=== PATIENT | male | born 1960 | race Caucasian/White ===

== ENCOUNTER 2020-10-10 10:04 | Emergency (ER) | payer SELFPAY ==
[~2020-10-10] VITALS: Ht 172 cm; Wt 68.9 kg
[~2020-10-10 10:04] MED LIST: ALBU17AE3 IH; CYCL10TA9 PO; NAPR-243 PO; TRM50T PO
[2020-10-10] MEDS ORDERED: RX-ALBUTEROL INHALER (VENTOLIN HFA) 18 GM IH STA (10:58)
[2020-10-10] MEDS ORDERED: LIDOCAINE 1% INJ 20 ML 20 ML VIAL INJ ONE (11:00)
[2020-10-10] MEDS ORDERED: TETANUS,DIPTH,PERTUSS P/F (BOOSTRIX) 0.5 ML VIAL IM ONE (11:00)
--- NOTE | 2020-10-10 11:29 | ED Upper Extremity ---
General Chief Complaint: Foreign Body Stated Complaint: R HAND INDEX FINGER FISH HOOK Nursing Triage Note: PT PRESENTS TO ED WITH COMPLAINTS OF FISH HOOK STUCK IN R INDEX FINGER. (BRYAN TAPIA APRN) Source: patient Exam Limitations: no limitations (CAROLINA WESLEY MD) History of Present Illness Date Seen by Provider: Oct 10, 2020 Time Seen by Provider: 10:50 Initial Comments Here with report of fishhook in the right index finger. He was apparently fishing for catfish and had 2 on the line. They got tangled up and he was trying to untangle them. The larger of the 2 apparently flipped and the hook became lodged in the patient's index finger. He was finally able to get the fish off and cut the line. He initially presented to [facility] urgent [facility] and they sent him here because they did not have x-ray capability this morning. Tetanus is not up-to-date. He is also complaining of some COPD exacerbation but states he really just needs an inhaler. Denies any other recent illness. Complains of fairly significant pain to the right index finger where the hook is at the DIP joint on the dorsum of the hand. Onset: just prior to arrival (1 to 2 hours ago) Severity: moderate Pain/Injury Location: right 2nd finger Method of Injury: other ([place] injury) Modifying Factors: Improves With Immobilization; Worse With Movement (CAROLINA WESLEY MD) Allergies and Home Medications Allergies Coded Allergies: No Known Drug Allergies (Unverified , 02/12/12) Home Medications Albuterol 17 Gm Inh, 1-2 PUFF IH UD, (Reported) Cyclobenzaprine Hcl 10 Mg Tablet, 1 EACH PO Q8HR Prescribed by: HERACLIO OLIVIA on 11/05/131748 Naproxen 500 Mg Tablet, 1 EACH PO TID PRN for PAIN FOR PAIN Prescribed by: HERACLIO OLIVIA on 11/05/131748 Patient Home Medication List Home Medication List Reviewed: Yes (CAROLINA WESLEY MD) Review of Systems Constitutional: No chills, No fever Respiratory: No cough; wheezing Cardiovascular: no symptoms reported Musculoskeletal: joint pain Skin: see HPI; No other (CAROLINA WESLEY MD) Past Pcregsu-Cpontn-Ubwdeb Hx Patient Social History Tobacco Use?: Yes Tobacco type used: Cigarettes Smoking Status: Current Everyday Smoker Smokeless Tobacco Frequency: Never a User Use of E-Cig and/or Vaping dev: No Use of E-Cig and/or Vaping Min: Never a User Substance use?: Yes Substance type: Marijuana Alcohol Use?: Yes Alcohol Frequency: Once in a while Pt feels they are or have been: No (BRYAN TAPIA APRN) Tobacco Use?: Yes Tobacco type used: Cigarettes (CAROLINA WESLEY MD) Immunizations Up To Date Tetanus Booster (TDap): Unknown (BRYAN TAPIA APRN) Past Medical History Asthma Reproductive Disorders: No Sexually Transmitted Disease: No HIV/AIDS: No (BRYAN TAPIA APRN) Surgeries: No Respiratory: Yes COPD (CAROLINA WESLEY MD) Physical Exam Vital Signs Vital Signs - First Documented 10/10/20 10:14 Temp 36.5 Pulse 90 Resp 18 B/P (MAP) 141/97 (112) Pulse Ox 98 (CAROLINA WESLEY MD) Vital Signs Capillary Refill : Less Than 3 Seconds (BRYAN TAPIA APRN) Height, Weight, BMI Height: 5'8" Weight: 150lbs. oz. 68.395943sh; 23.00 BMI Method:Stated (BRYAN TAPIA APRN) General Appearance: WD/WN, no apparent distress Cardiovascular: regular rate, rhythm, no murmur Respiratory: no accessory muscle use, wheezing, expiration Hand: Right, soft tissue tenderness ([place] noted to the area of the dorsum of the DIP joint to the index finger on the right. Unsure if this invades the bone. Does have significant pain in the area. Distal sensation intact and does have retained range of motion but limited and it is very painful.) Neurologic/Tendon: normal sensation, normal motor functions Neurologic/Psychiatric: alert, oriented x 3 Skin: normal color, warm/dry, other ([place] to the right index finger as discussed above) (CAROLINA WESLEY MD) Progress/Results/Core Measures Results/Orders My Orders Orders - CAROLINA WESLEY MD Lidocaine 1% Inj 20 Ml (Xylocaine 1% Inj (10/10/20 11:00) Finger(S) (10/10/20 10:58) Rx-Albuterol Inhaler (Rx-Ventolin Hfa) (10/10/20 10:58) Dipht,Pertuss(Acell),Tet Adult (Boostrix (10/10/20 11:00) (CAROLINA WESLEY MD) Medications Given in ED Current Medications Medications Dose Ordered Sig/Chelsea Route Start Time Stop Time Status Last Admin Dose Admin Diphtheria/ Tetanus/Acell Pertussis 0.5 ml ONCE ONCE IM 10/10/20 11:00 10/10/20 11:01 DC 10/10/20 11:15 0.5 ML Lidocaine HCl 20 ml ONCE ONCE INJ 10/10/20 11:00 10/10/20 11:01 DC 10/10/20 11:16 5 ML (CAROLINA WESLEY MD) Vital Signs/I&O 10/10/20 10:14 Temp 36.5 Pulse 90 Resp 18 B/P (MAP) 141/97 (112) Pulse Ox 98 (CAROLINA WESLEY MD) Blood Pressure Mean: 112 Progress Progress Note : Progress Note Seen and evaluated. X-ray right index finger. Tetanus updated. We will do digital block. Albuterol inhaler given and 2 puffs instilled which did help. Care will be assumed by Bryan Tapia APRN for fishhook removal. (CAROLINA WESLEY MD) Departure Communication (Admissions) 1139-digital block was done using 5 mL of 1% lidocaine without epinephrine. The single hook was advanced through the nail plate proximally, the chari was cut off and the hook was retracted out the back. (BRYAN TAPIA APRN) Impression Primary Impression: Foreign body in soft tissue Disposition: HOME, SELF-CARE Condition: Stable Departure-Patient Inst. Decision time for Depature: 11:41 (BRYAN TAPIA APRN) Referrals: NO,LOCAL PHYSICIAN (PCP/Family) Primary Care Physician Patient Instructions: Foreign Body in Skin (DC) Add. Discharge Instructions: 1. Take the antibiotics as directed return to ER for any concerns follow-up with your doctor next week. All discharge instructions reviewed with patient and/or family. Voiced understanding. Scripts Hydrocodone/Acetaminophen (Hydrocodone-Acetamin 5-325 mg) 1 Each Tablet 1 TAB PO Q4H PRN for PAIN-MODERATE (5-7), #10 TAB Prov: BRYAN TAPIA APRN 10/10/20 Amoxicillin/Potassium Clav (Augmentin 245125 Tablet) 1 Each Tablet 1 EACH PO BID, #14 TAB 0 Refills Prov: BRYAN TAPIA APRN 10/10/20 BRYAN TAPIA APRN Oct 10, 2020 11:29 CAROLINA WESLEY MD Oct 10, 2020 11:37
--- NOTE | 2020-10-10 11:32 | Diagnostic Imaging Report ---
Right fingers at 11:06. Indication: Finger pain A single AP view of the hand and AP and lateral views of the 2nd digit were obtained. There are no prior studies available for comparison. There is a metallic fishhook embedded in the region of the nail of the distal phalanx of the 2nd digit. There is no direct bony involvement identified. No other fracture or acute bony abnormality seen. Impression: 1. There is a metallic fishhook embedded in the soft tissues about the nail of the 2nd digit. 2. There is no acute bony abnormality noted. Dictated by: Dictated on workstation # [id number]
[2020-10-10] MEDS ORDERED: AMOX-358 PO (11:41)
[2020-10-10] MEDS ORDERED: ACHD5005 PO (11:41)
[2020-10-10 11:50] VITALS: BP 140/87
== END 2020-10-10 11:50 | disposition home or self-care (01) ==
LOC: EDUNIT# 10:04 → ER 10:05
DX: S60.450A Superficial foreign body of right index finger, initial encounter (principal); J44.9 Chronic obstructive pulmonary disease, unspecified; F17.210 Nicotine dependence, cigarettes, uncomplicated; Z23 Encounter for immunization; W45.8XXA Other foreign body or object entering through skin, initial encounter
CPT/HCPCS: 73140; 90715

== ENCOUNTER 2022-03-12 18:23 | Emergency (ER) | payer SELFPAY ==
[~2022-03-12 18:23] MED LIST changes: +ACHD5005 PO; +AMOX-358 PO
[2022-03-12] MEDS ORDERED: NS IV 1000 ML 1,000 ML IV STA (18:41)
[2022-03-12] MEDS ORDERED: KETOROLAC 30 MG/ML VIAL IVP ONE (18:45)
[2022-03-12] MEDS ORDERED: ACETAMINOPHEN 500 MG TAB (TYLENOL) PO ONE (18:45)
[2022-03-12 18:51] LABS: BASOPHILS % (AUTO) 0 % (0-10); EOSINOPHILS % (AUTO) 0 % (0-10); HEMATOCRIT 45 % (40-54); HEMOGLOBIN 15.7 g/dL (13.3-17.7); LYMPHOCYTES # (AUTO) 0.6 10^3/uL (1.0-4.0); LYMPHOCYTES % (AUTO) 11 % (12-44); MEAN CORPUSCULAR HEMOGLOBIN 31 pg (25-34); MEAN CORPUSCULAR HGB CONC 35 g/dL (32-36); MEAN CORPUSCULAR VOLUME 88 fL (80-99); MEAN PLATELET VOLUME 9.5 fL (9.0-12.2); MONOCYTES # (AUTO) 0.5 10^3/uL (0.0-1.0); MONOCYTES % (AUTO) 10 % (0-12); NEUTROPHILS # (AUTO) 4.1 10^3/uL (1.8-7.8); NEUTROPHILS % (AUTO) 78 % (42-75); PLATELET COUNT 186 10^3/uL (130-400); WHITE BLOOD COUNT 5.3 10^3/uL (4.3-11.0)
--- NOTE | 2022-03-12 18:51 | ED Cough/URI ---
General Chief Complaint: Cough/Cold/Flu Symptoms Stated Complaint: COUGH/DIZZY/LOW BACK PAIN Nursing Triage Note: Pt to ed with c/o cough, headaches, dizziness, lower left back pain for about 1 week Source: patient Exam Limitations: no limitations History of Present Illness Date Seen by Provider: Mar 12, 2022 Time Seen by Provider: 18:31 Initial Comments Here with report of cough, headache, dizziness, back pain, congestion and overall not feeling well for the last week to a week and a half. Seen yesterday at [facility] outpatient clinic and apparently started on antibiotic and a steroid. He is using inhaler. Reports that things are worse today. He did not get tested for flu or COVID. He works as a [employer]. He does smoke. Denies nausea or vomiting but does have some loose stools. Denies dysuria. Does complain of fever and chills. Severity/Quality: moderate, dry cough Prior Episodes/Possible Cause: occasional episodes Modifying Factors: Improves With Albuterol Inhaler Associated Symptoms: cough, dizziness, fever/chills, headache, muscle aches, nasal congestion, shortness of breath Allergies and Home Medications Allergies Coded Allergies: No Known Drug Allergies (Unverified , 02/12/12) Patient Home Medication List Home Medication List Reviewed: Yes Albuterol (Proventil) 17 Gm Inh, 1-2 PUFF IH UD, (Reported) Entered as Reported by: CONSTANTINO STALEY on 11/05/13 1605 Amoxicillin/Potassium Clav (Augmentin 875-125 Tablet) 1 Each Tablet, 1 EACH PO BID Prescribed by: BRYAN TAPIA on 10/10/20 1141 Cyclobenzaprine Hcl (Cyclobenzaprine Hcl) 10 Mg Tablet, 1 EACH PO Q8HR Prescribed by: HERACLIO OLIVIA on 11/05/13 174 Hydrocodone/Acetaminophen (Hydrocodone-Acetamin 5-325 mg) 1 Each Tablet, 1 TAB PO Q4H PRN for PAIN-MODERATE (5-7) Prescribed by: BRYAN TAPIA on 10/10/20 1142 Naproxen (Naprosyn) 500 Mg Tablet, 1 EACH PO TID PRN for PAIN Prescribed by: HERACLIO OLIVIA on 11/05/13 174 Review of Systems Review of Systems Constitutional: see HPI, chills, fever EENTM: nose congestion; No throat pain Respiratory: cough, short of breath Cardiovascular: No chest pain, No edema Gastrointestinal: diarrhea; No nausea, No vomiting Genitourinary: no symptoms reported Musculoskeletal: back pain, muscle pain All Other Systems Reviewed Negative Unless Noted: Yes Past Jduqdvm-Exmhiy-Ppalrp Hx Patient Social History Tobacco Use?: Yes Tobacco type used: Cigarettes Smoking Status: Current Everyday Smoker Substance use?: Yes Substance type: Methamphetamine, Other Additional substance use comme: cocaine Alcohol Use?: Yes Alcohol Frequency: Couple times a week Pt feels they are or have been: No Immunizations Up To Date Tetanus Booster (TDap): Unknown Past Medical History Surgery/Hospitalization HX: copd, htn Surgeries: No Respiratory: Yes COPD Cardiac: Yes Hypertension Reproductive Disorders: No Sexually Transmitted Disease: No HIV/AIDS: No Family Medical History Reviewed Nursing Family Hx Physical Exam Vital Signs - First Documented 03/12/22 18:31 Temp 37.5 Pulse 102 Resp 22 B/P (MAP) 176/107 (130) Pulse Ox 95 O2 Delivery Room Air Capillary Refill : Height: 5'8" Weight: 150lbs. oz. 68.580124ut; 23.00 BMI Method:Stated General Appearance: WD/WN, no apparent distress HEENT: PERRL/EOMI Neck: non-tender, full range of motion, supple, normal inspection Respiratory: lungs clear, normal breath sounds, other (Coarse cough noted) Cardiovascular: no murmur, tachycardia Gastrointestinal: non tender, soft Extremities: non-tender, normal inspection, no pedal edema, no calf tenderness, other (Tender to left lower back lateral aspect) Neurologic/Psychiatric: no motor/sensory deficits, alert Skin: normal color, warm/dry Progress/Results/Core Measures Suspected Sepsis SIRS Temperature: Pulse: 102 Respiratory Rate: 22 Laboratory Tests 03/12/22 18:41: White Blood Count 5.3 Blood Pressure 176 /107 Mean: 130 Laboratory Tests 03/12/22 18:41: Creatinine 0.79, Platelet Count 186, Total Bilirubin 0.3 Results/Orders Lab Results Laboratory Tests Test 03/12/22 18:32 03/12/22 18:41 Range/Units Influenza Type A (RT-PCR) Detected H Not Detecte Influenza Type B (RT-PCR) Not Detected Not Detecte SARS-CoV-2 RNA (RT-PCR) Not Detected Not Detecte White Blood Count 5.3 4.3-11.0 10^3/uL Red Blood Count 5.10 4.30-5.52 10^6/uL Hemoglobin 15.7 13.3-17.7 g/dL Hematocrit 45 40-54 % Mean Corpuscular Volume 88 80-99 fL Mean Corpuscular Hemoglobin 31 25-34 pg Mean Corpuscular Hemoglobin Concent 35 32-36 g/dL Red Cell Distribution Width 12.7 10.0-14.5 % Platelet Count 186 130-400 10^3/uL Mean Platelet Volume 9.5 9.0-12.2 fL Immature Granulocyte % (Auto) 1 % Neutrophils (%) (Auto) 78 H 42-75 % Lymphocytes (%) (Auto) 11 L 12-44 % Monocytes (%) (Auto) 10 0-12 % Eosinophils (%) (Auto) 0 0-10 % Basophils (%) (Auto) 0 0-10 % Neutrophils # (Auto) 4.1 1.8-7.8 10^3/uL Lymphocytes # (Auto) 0.6 L 1.0-4.0 10^3/uL Monocytes # (Auto) 0.5 0.0-1.0 10^3/uL Eosinophils # (Auto) 0.0 0.0-0.3 10^3/uL Basophils # (Auto) 0.0 0.0-0.1 10^3/uL Immature Granulocyte # (Auto) 0.0 0.0-0.1 10^3/uL Sodium Level 133 L 135-145 MMOL/L Potassium Level 3.8 3.6-5.0 MMOL/L Chloride Level 100 98-107 MMOL/L Carbon Dioxide Level 22 21-32 MMOL/L Anion Gap 11 5-14 MMOL/L Blood Urea Nitrogen 17 7-18 MG/DL Creatinine 0.79 0.60-1.30 MG/DL Estimat Glomerular Filtration Rate 102 BUN/Creatinine Ratio 22 Glucose Level 102 70-105 MG/DL Calcium Level 8.5 8.5-10.1 MG/DL Corrected Calcium 8.9 8.5-10.1 MG/DL Total Bilirubin 0.3 0.1-1.0 MG/DL Aspartate Amino Transf (AST/SGOT) 56 H 5-34 U/L Alanine Aminotransferase (ALT/SGPT) 90 H 0-55 U/L Alkaline Phosphatase 102 40-136 U/L C-Reactive Protein High Sensitivity 1.19 H 0.00-0.50 MG/DL Total Protein 6.7 6.4-8.2 GM/DL Albumin 3.5 3.2-4.5 GM/DL My Orders Orders - CAROLINA WESLEY MD Covid 19 Inhouse Test (03/12/22 18:41) Influenza A And B By Pcr (03/12/22 18:41) Cbc With Automated Diff (03/12/22 18:41) Comprehensive Metabolic Panel (03/12/22 18:41) Hs C Reactive Protein (03/12/22 18:41) Ns Iv 1000 Ml (Sodium Chloride 0.9%) (03/12/22 18:41) Ed Iv/Invasive Line Start (03/12/22 18:41) Chest 1 View, Ap/Pa Only (03/12/22 18:41) Acetaminophen Tablet (Tylenol Tablet) (03/12/22 18:45) Ketorolac Injection (Toradol Injection) (03/12/22 18:45) Medications Given in ED Current Medications Medications Dose Ordered Sig/Chelsea Route Start Time Stop Time Status Last Admin Dose Admin Acetaminophen 1,000 mg ONCE ONCE PO 12 18:45 12 18:46 DC 03/12/22 18:51 1,000 MG Ketorolac Tromethamine 30 mg ONCE ONCE IVP 03/12/22 18:45 12 18:46 DC 03/12/22 18:51 30 MG Vital Signs/I&O 03/12/22 18:31 Temp 37.5 Pulse 102 Resp 22 B/P (MAP) 176/107 (130) Pulse Ox 95 O2 Delivery Room Air Capillary Refill : Blood Pressure Mean: 130 Progress Note : Progress Note Seen and evaluated. IV, CBC, CMP and CRP, chest x-ray, normal saline 1 L bolus, influenza and COVID testing ordered. Acetaminophen 1000 mg p.o. and ketorolac 30 mg IV ordered for fever and pain. Concern for viral illness due to presenting complaints and fever but pneumonia is also a concern. Monitor patient. 1922: Chest x-ray shows no obvious pneumonia on my interpretation. Pending final result. Patient is positive for influenza A. White count normal and chemistries are overall and normal or reasonable range. CRP is only slightly elevated. I do believe all this is related to influenza A. Patient states he is actually feeling better now after meds and with fluids. We will complete fluids and then patient to be discharged home. I did discuss with him regarding return precautions and home therapy. Discharged home with return precautions. Patient verbalized understanding of instructions and agreement with plan. Diagnostic Imaging Diagonstic Imaging: Xray Plain Films/CT/US/NM/MRI: chest Comments No obvious infiltrate pending final radiology report [facility], [place] NAME: VIOLETA SALGUERO [facility] REC#: [id number] PT STATUS: REG ER : 1960 PHYSICIAN: CAROLINA WESLEY MD ADMIT DATE: 03/12/22/ER Signed Date of Exam:03/12/22 CHEST 1 VIEW, AP/PA ONLY INDICATION: Cough. COMPARISON: No prior examination is available for comparison. FINDINGS: The heart size, mediastinal configuration, and pulmonary vascularity are within normal limits. There is no pleural effusion, pneumothorax, or pneumonia. The osseous structures are unremarkable. IMPRESSION: No acute cardiopulmonary abnormality. Dictated by: Dictated on workstation # [id number] Dict: 03/12/221918 Trans: 03/12/221922 [facility] [id number] Interpreted by: STEFANO YOO MD Electronically signed by: STEFANO YOO MD 03/12/221922 Departure Impression Primary Impression: Influenza A Disposition: 01 HOME, SELF-CARE Condition: Stable Departure-Patient Inst. Decision time for Depature: 19:24 Referrals: [facility] (PCP/Family) Primary Care Physician Patient Instructions: Flu, Adult (DC) Add. Discharge Instructions: All discharge instructions reviewed with patient and/or family. Voiced understanding. You may take Tylenol/acetaminophen 1000 mg every 8 hours as needed for fever or pain. You may take ibuprofen 600 mg every 8 hours as needed for fever or pain. Continue other medications as previously prescribed and you may continue inhaler as needed. Follow-up with your DrFrancisco in a few days for recheck. Drink plenty of fluids and get plenty of rest. You would benefit from taking a few days off from work to recover. You should not be out in public with influenza A until your fever has resolved for at least 24 hours without fever reducing medicines. Return for worse pain, fever, vomiting, weakness, breathing problems or other concerns as needed. CAROLINA WESLEY MD Mar 12, 2022 18:51
[2022-03-12 19:09] LABS: ALBUMIN 3.5 GM/DL (3.2-4.5); BILIRUBIN,TOTAL 0.3 MG/DL (0.1-1.0); CALCIUM 8.5 MG/DL (8.5-10.1); CREATININE SERUM 0.79 MG/DL (0.60-1.30); POTASSIUM 3.8 MMOL/L (3.6-5.0); TOTAL PROTEIN 6.7 GM/DL (6.4-8.2)
--- NOTE | 2022-03-12 19:22 | Diagnostic Imaging Report ---
INDICATION: Cough. COMPARISON: No prior examination is available for comparison. FINDINGS: The heart size, mediastinal configuration, and pulmonary vascularity are within normal limits. There is no pleural effusion, pneumothorax, or pneumonia. The osseous structures are unremarkable. IMPRESSION: No acute cardiopulmonary abnormality. Dictated by: Dictated on workstation # [id number]
[2022-03-12 19:54] VITALS: BP 176/107
== END 2022-03-12 19:53 | disposition home or self-care (01) ==
LOC: EDUNIT# 18:23 → ER 18:26
DX: J10.1 Influenza due to other identified influenza virus with other respiratory manifestations (principal); F17.210 Nicotine dependence, cigarettes, uncomplicated; Z20.822 Contact with and (suspected) exposure to COVID-19; Z28.310 Unvaccinated for COVID-19
CPT/HCPCS: 36415; 71045; 80053; 85025; 86141; 87636

== ENCOUNTER 2022-04-22 18:44 | Emergency (ER) | payer SELFPAY ==
[~2022-04-22] VITALS: Ht 172.7 cm; Wt 70.3 kg
[2022-04-22 18:56] LABS: BASOPHILS # (AUTO) 0.1 10^3/uL (0.0-0.1); BASOPHILS % (AUTO) 1 % (0-10); EOSINOPHILS # (AUTO) 0.5 10^3/uL (0.0-0.3); EOSINOPHILS % (AUTO) 5 % (0-10); HEMATOCRIT 52 % (40-54); LYMPHOCYTES # (AUTO) 2.4 10^3/uL (1.0-4.0); LYMPHOCYTES % (AUTO) 27 % (12-44); MEAN CORPUSCULAR HEMOGLOBIN 31 pg (25-34); MEAN CORPUSCULAR HGB CONC 34 g/dL (32-36); MEAN CORPUSCULAR VOLUME 89 fL (80-99); MEAN PLATELET VOLUME 9.2 fL (9.0-12.2); MONOCYTES # (AUTO) 0.7 10^3/uL (0.0-1.0); MONOCYTES % (AUTO) 7 % (0-12); NEUTROPHILS # (AUTO) 5.3 10^3/uL (1.8-7.8); NEUTROPHILS % (AUTO) 60 % (42-75); PLATELET COUNT 355 10^3/uL (130-400); WHITE BLOOD COUNT 8.9 10^3/uL (4.3-11.0)
--- NOTE | 2022-04-22 19:05 | ED Neurological Problem ---
General Chief Complaint: Neurological Problems Stated Complaint: POSS STROKE Nursing Triage Note: PT AMBULATE TO ROOM 05 WITH C/O NUMBNESS ON LEFT SIDE, DOUBLE VISION, AND GENERAL WEAKNESS STARTING X20MIN BI MANAGER. PT REPORTS CHEST PAIN. Source: patient History of Present Illness Date Seen by Provider: Apr 22, 2022 Time Seen by Provider: 18:46 Initial Comments PT ARRIVES VIA POV FROM HOME STATES 20 MINUTES AGO, HE BEGAN TO HAVE NUMBNESS AND TINGLING TO THE LEFT SIDE OF HIS BODY, INCLUDING THE LEFT SIDE OF HIS FACE. STATES "IT'S HAPPENED 3 TIMES ALREADY" AND SYMPTOMS ARE IMPROVING SHORTLY AFTER ARRIVAL--STATES HE JUST FEELS A LITTLE TINGLY ON THE LEFT SIDE OF HIS BODY, NOT NUMB LIKE HE WAS STATES HIS "EQUILIBRIUM IS OFF" STATES HE HAS SOME DOUBLE VISION STATES HIS CHEST "MIGHT FEEL A LITTLE TIGHT" NO SHORTNESS OF BREATH NO HEADACHE NO NAUSEA / VOMITING FEELS WEAK ALL OVER NO HISTORY OF SIMILAR STATES HE USES AN INHALER FOR COPD STATES HE HAS HTN, BUT DOES NOT TAKE ANY MEDICATION FOR IT. PT DID TEST POSITIVE FOR INFLUENZA 03/12/22. PT IS NOT COVID OR FLU VACCINATED. PCP: JABARI-SAMANTA Allergies and Home Medications Allergies Coded Allergies: No Known Drug Allergies (Unverified , 02/12/12) Patient Home Medication List Albuterol (Proventil) 17 Gm Inh, 1-2 PUFF IH UD, (Reported) Entered as Reported by: CONSTANTINO STALEY on 11/05/13 1605 Amoxicillin/Potassium Clav (Augmentin 875-125 Tablet) 1 Each Tablet, 1 EACH PO BID Prescribed by: BRYAN TAPIA on 10/10/20 1141 Cyclobenzaprine Hcl (Cyclobenzaprine Hcl) 10 Mg Tablet, 1 EACH PO Q8HR Prescribed by: HERACLIO OLIVIA on 11/05/13 1749 Hydrocodone/Acetaminophen (Hydrocodone-Acetamin 5-325 mg) 1 Each Tablet, 1 TAB PO Q4H PRN for PAIN-MODERATE (5-7) Prescribed by: BRYAN TAPIA on 10/10/20 1142 Naproxen (Naprosyn) 500 Mg Tablet, 1 EACH PO TID PRN for PAIN Prescribed by: HERACLIO OLIVIA on 11/05/13 1749 Review of Systems Review of Systems Constitutional: see HPI; No chills, No diaphoresis; dizziness; No fever; weakness Eyes: See HPI, Vision Changes Ears, Nose, Mouth, Throat: no symptoms reported Respiratory: no symptoms reported Cardiovascular: see HPI, chest pain Gastrointestinal: no symptoms reported Genitourinary: no symptoms reported Musculoskeletal: no symptoms reported Skin: no symptoms reported Psychiatric/Neurological: See HPI; Denies Headache; Numbness, Tingling Endocrine: No Symptoms Reported Hematologic/Lymphatic: No Symptoms Reported Past Axeqpph-Ezlqht-Sqhgor Hx Patient Social History Tobacco Use?: Yes Tobacco type used: Cigarettes Smoking Status: Heavy Tobacco Smoker Smokeless Tobacco Frequency: Never a User Use of E-Cig and/or Vaping dev: No Use of E-Cig and/or Vaping Min: Never a User Substance use?: Yes Substance type: Amphetamines, Methamphetamine, Opiates/Opioids, Misuse of prescript meds, Marijuana Alcohol Use?: Yes Alcohol Frequency: Daily Pt feels they are or have been: No Immunizations Up To Date Tetanus Booster (TDap): Unknown Past Medical History Surgery/Hospitalization HX: copd, htn Surgeries: Yes Appendectomy Respiratory: Yes COPD Cardiac: Yes Hypertension Reproductive Disorders: No Sexually Transmitted Disease: No HIV/AIDS: No Genitourinary: No Gastrointestinal: No Musculoskeletal: No Endocrine: No HEENT: No Cancer: No Psychosocial: No Integumentary: No Blood Disorders: No Family Medical History SOCIAL HISTORY: -SMOKES 1 PPD -ETOH--"OCCASIONAL" USE -DRUGS--DENIES USE, BUT UDS + FOR AMPHETAMINES/METHAMPHETAMINES, THC, BENZODIAZEPINES ON 04/22/22 Physical Exam Vital Signs Vital Signs - First Documented 04/22/22 18:48 Temp 36.3 Pulse 82 Resp 14 B/P (MAP) 172/99 (123) O2 Delivery Room Air Capillary Refill : Less Than 3 Seconds Height, Weight, BMI Height: 5'8" Weight: 150lbs. oz. 68.608700jw; 23.00 BMI Method:Stated General Appearance: WD/WN, no apparent distress, other (REEKS OF CIGARETTES. ) HEENT: PERRL/EOMI, TMs normal, pharynx normal, other (POOR DENTITION. NO FACIAL DROOP. TONGUE IS MIDLINE. 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 ) Crainal Nerves: normal hearing, normal speech, PERRL Coordination/Gait: normal finger to nose, normal gait Motor/Sensory: no motor deficit, no sensory deficit, no pronator drift Skin: normal color, warm/dry, tattoos/piercings Stroke Onset of Symptoms Date of Onset of Symptoms: Apr 22, 2022 Time of Symptom Onset: 18:20 Onset of Symptoms: Yes NIH Stroke Scale Assessment Level of Consciousness: 0=Alert (0), Level of Consciousness-Questions: 0=Answers both month/age (0), LOC Commands: 0=Performs both tasks (0), Visual Jordan: 0=No visual loss (0), Facial Movement (Facial Paresis): 0=Normal symm etrical mnt (0), Motor Function-Arms Right: 0=No drift (0), Motor Function- Arms Left: 0=No drift (0), Motor Function-Legs Right: 0=No drift (0), Motor Function-Legs Left: 0=No drift (0), Limb Ataxia: 0=Absent (0), Sensory: 0=Normal:no loss (0), Best Language: 0=No aphasia (0), Dysarthria: 0=Normal (0), Extinction & Inattention: 0=No abnormality (0), Total: 0 Stroke Thrombolytic Exclusion Age 18 or Over: Yes History of CVA: No Uncontrolled Coagulation Defec: No Intracranial Hemorrhage: No Severe Hypertension: No GI or Bleed: No Subarachnoid Hemorrhage: No Intracranial Neoplasm/Aneurysm: No Oral Anticoagulants: No Surgery or Trauma: No Puncture of Non-Compressible V: No Recent CPR: No Diabetic Hemorrhagic Retinopat: No Organ Biopsy: No Recent Obstetric Delivery: No Glucose: No NIH Stoke Scale >22: No Bacterial Endocarditis: No Pericarditis: No Improving Symptoms: Yes Platelets: No TPA Contraindication: No IV - TPa Received IV - TPa Procedure Performed?: No (NIH IS 0, AND SYMPTOMS IMPROVING. ) Progress/Results/Core Measures Results/Orders Lab Results Laboratory Tests Test 04/22/22 18:44 04/22/22 18:50 04/22/22 18:52 04/22/22 19:18 Range/Units White Blood Count 8.9 4.3-11.0 10^3/uL Red Blood Count 5.87 H 4.30-5.52 10^6/uL Hemoglobin 18.0 H 13.3-17.7 g/dL Hematocrit 52 40-54 % Mean Corpuscular Volume 89 80-99 fL Mean Corpuscular Hemoglobin 31 25-34 pg Mean Corpuscular Hemoglobin Concent 34 32-36 g/dL Red Cell Distribution Width 13.0 10.0-14.5 % Platelet Count 355 130-400 10^3/uL Mean Platelet Volume 9.2 9.0-12.2 fL Immature Granulocyte % (Auto) 0 % Neutrophils (%) (Auto) 60 42-75 % Lymphocytes (%) (Auto) 27 12-44 % Monocytes (%) (Auto) 7 0-12 % Eosinophils (%) (Auto) 5 0-10 % Basophils (%) (Auto) 1 0-10 % Neutrophils # (Auto) 5.3 1.8-7.8 10^3/uL Lymphocytes # (Auto) 2.4 1.0-4.0 10^3/uL Monocytes # (Auto) 0.7 0.0-1.0 10^3/uL Eosinophils # (Auto) 0.5 H 0.0-0.3 10^3/uL Basophils # (Auto) 0.1 0.0-0.1 10^3/uL Immature Granulocyte # (Auto) 0.0 0.0-0.1 10^3/uL Erythrocyte Sedimentation Rate 3 0-30 MM/HR Sodium Level 137 135-145 MMOL/L Potassium Level 3.9 3.6-5.0 MMOL/L Chloride Level 100 98-107 MMOL/L Carbon Dioxide Level 27 21-32 MMOL/L Anion Gap 10 5-14 MMOL/L Blood Urea Nitrogen 19 H 7-18 MG/DL Creatinine 1.01 0.60-1.30 MG/DL Estimat Glomerular Filtration Rate 85 BUN/Creatinine Ratio 19 Glucose Level 90 70-105 MG/DL Calcium Level 9.5 8.5-10.1 MG/DL Corrected Calcium 9.4 8.5-10.1 MG/DL Magnesium Level 2.0 1.6-2.4 MG/DL Total Bilirubin 0.9 0.1-1.0 MG/DL Aspartate Amino Transf (AST/SGOT) 45 H 5-34 U/L Alanine Aminotransferase (ALT/SGPT) 105 H 0-55 U/L Alkaline Phosphatase 118 40-136 U/L Total Creatine Kinase 90 30-200 U/L Creatine Kinase MB 3.0 <6.6 NG/ML Myoglobin 74.0 10.0-92.0 NG/ML Troponin I < 0.028 <0.028 NG/ML C-Reactive Protein High Sensitivity 0.48 0.00-0.50 MG/DL B-Type Natriuretic Peptide 41.0 <100.0 PG/ML Total Protein 8.1 6.4-8.2 GM/DL Albumin 4.1 3.2-4.5 GM/DL TSH [place] Testing 1.12 0.35-4.94 UIU/ML Acetaminophen Level < 10 L 10-30 UG/ML Serum Alcohol < 10 <10 MG/DL Influenza Type A (RT-PCR) Not Detected Not Detecte Influenza Type B (RT-PCR) Not Detected Not Detecte SARS-CoV-2 RNA (RT-PCR) Not Detected Not Detecte Glucometer 91 70-110 MG/DL Prothrombin Time 13.7 12.2-14.7 SEC INR Comment 1.0 0.8-1.4 Activated Partial Thromboplast Time 30 24-35 SEC D-Dimer 0.58 H 0.00-0.49 UG/ML Test 04/22/22 20:03 Range/Units Urine Color YELLOW Urine Clarity CLEAR Urine pH 6.0 5-9 Urine Specific [place] 1.010 L 1.016-1.022 Urine Protein NEGATIVE NEGATIVE Urine Glucose (UA) NEGATIVE NEGATIVE Urine Ketones NEGATIVE NEGATIVE Urine Nitrite NEGATIVE NEGATIVE Urine Bilirubin NEGATIVE NEGATIVE Urine Urobilinogen 0.2 < = 1.0 MG/DL Urine Leukocyte Esterase NEGATIVE NEGATIVE Urine RBC (Auto) NEGATIVE NEGATIVE Urine RBC NONE /HPF Urine WBC NONE /HPF Urine Crystals NONE /LPF Urine Bacteria NEGATIVE /HPF Urine Casts NONE /LPF Urine Mucus SMALL H /LPF Urine Other FEW SPERM H /HPF Urine Culture Indicated NO Urine Opiates Screen NEGATIVE NEGATIVE Urine Oxycodone Screen NEGATIVE NEGATIVE Urine Methadone Screen NEGATIVE NEGATIVE Urine Propoxyphene Screen NEGATIVE NEGATIVE Urine Barbiturates Screen NEGATIVE NEGATIVE Ur Tricyclic Antidepressants Screen NEGATIVE NEGATIVE Urine Phencyclidine Screen NEGATIVE NEGATIVE Urine Amphetamines Screen POSITIVE H NEGATIVE Urine Methamphetamines Screen POSITIVE H NEGATIVE Urine Benzodiazepines Screen POSITIVE H NEGATIVE Urine Cocaine Screen NEGATIVE NEGATIVE Urine Cannabinoids Screen POSITIVE H NEGATIVE My Orders Orders - HERACLIO OLIVIA DO Cbc With Automated Diff (04/22/22 18:50) Protime With Inr (04/22/22 18:50) Partial Thromboplastin Time (04/22/22 18:50) Comprehensive Metabolic Panel (04/22/22 18:50) Fibrin Degradation Products (04/22/22 18:50) Troponin I Cheri (04/22/22 18:50) Ua Culture If Indicated (04/22/22 18:50) Chest 1 View, Ap/Pa Only (04/22/22 18:50) Ekg Tracing (04/22/22 18:50) Nothing By Mouth (04/22/22 Dinner) Accucheck Stat ONCE (04/22/22 18:50) Ed Iv/Invasive Line Start (04/22/22 18:50) Ed Iv/Invasive Line Start (04/22/22 18:50) Vital Signs Stroke Patient Q15M (04/22/22 18:50) Ct Head Wo-R/O Stroke (04/22/22 18:50) O2 (04/22/22 18:50) Intake & Output 06,14,22 (04/22/22 18:50) Monitor-Rhythm Ecg Trace Only (04/22/22 18:50) Dysphagia Screening Tool Q10MX1 (04/22/22 18:50) Hs C Reactive Protein (04/22/22 18:50) Erythrocyte Sedimentation Rate (04/22/22 18:50) Covid 19 Inhouse Test (04/22/22 18:50) Acetaminophen (04/22/22 18:50) Alcohol (04/22/22 18:50) Bnp Cheri (04/22/22 18:50) Creatine Kinase (04/22/22 18:50) Creatine Kinase Mb (04/22/22 18:50) Drug Screen Stat (Urine) (04/22/22 18:50) Magnesium (04/22/22 18:50) Thyroid Analyzer (04/22/22 18:50) Myoglobin Serum (04/22/22 18:50) Influenza A And B By Pcr (04/22/22 18:50) Isolation Central Supply Req (04/22/22 18:50) Ct Angio Head/Neck (04/22/22 19:18) Ct Head Perfusion W/ Contrast (04/22/22 19:18) Labetalol Injection (Normodyne Injection (04/22/22 19:30) Iohexol Injection (Omnipaque 350 Mg/Ml 1 (04/22/22 19:30) Ns (Ivpb) (Sodium Chloride 0.9% Ivpb Bag (04/22/22 19:30) Iohexol Injection (Omnipaque 350 Mg/Ml 1 (04/22/22 19:30) Ns (Ivpb) (Sodium Chloride 0.9% Ivpb Bag (04/22/22 19:30) Sodium Chloride Flush (Catheter Flush Sy (04/22/22 19:30) Medications Given in ED Current Medications Medications Dose Ordered Sig/Chelsea Route Start Time Stop Time Status Last Admin Dose Admin Iohexol 100 ml ONCE ONCE IV 04/22/22 19:30 04/22/22 19:31 DC 04/22/22 19:38 45 ML Iohexol 100 ml ONCE ONCE IV 04/22/22 19:30 04/22/22 19:31 DC 04/22/22 19:45 75 ML Sodium Chloride 10 ml NEEDED PRN IV 04/22/22 19:30 04/22/22 19:45 10 ML Sodium Chloride 100 ml ONCE ONCE IV 04/22/22 19:30 04/22/22 19:31 DC 04/22/22 19:39 80 ML Sodium Chloride 100 ml ONCE ONCE IV 04/22/22 19:30 04/22/22 19:31 DC 04/22/22 19:45 40 ML Vital Signs/I&O 04/22/22 18:48 Temp 36.3 Pulse 82 Resp 14 B/P (MAP) 172/99 (123) O2 Delivery Room Air Blood Pressure Mean: 123 FSBG Bedside Testing Finger Stick Blood Glucose: 91 Progress Progress Note : Progress Note STROKE PROTOCOL INITIATED ON ARRIVAL. BP 180'S/100'S ON ARRIVAL GIVEN LABETALOL FOR HTN PT WANTING SOMETHING TO DRINK AND WANTING US TO GET HIM A HAMBURGER SOON HE ARRIVES. EXPLAINED TO PT THAT HE COULD NOT HAVE ANYTHING TO EAT OR DRINK, UNTIL WE HAVE DONE TESTS. SYMPTOMS RESOLVED SHORTLY AFTER ARRIVAL UNEVENTFUL ER STAY Initial ECG Impression Date: Apr 22, 2022 Initial ECG Impression Time: 18:50 Initial ECG Rate: 76 Initial ECG Rhythm: Normal Sinus Initial ECG Impression: Nonspecific Changes Initial ECG Comparisson: No Previous ECG Available Comment INTERPRETED BY ME Diagnostic Imaging Comments CT HEAD--NO ACUTE PROCESS, PER RADIOLOGIST VIA PHONE AT 1907 FINDINGS: The ventricles and sulci are normal. Mild hypodensities throughout the supratentorial white matter of both cerebral hemispheres. No acute intracranial hemorrhage or abnormal extra-axial fluid collections are present. Calcification of the intracranial ICAs. No hyperdense vessel. The calvarium is intact. The mastoid air cells are clear. Mucosal thickening of the paranasal sinuses. The orbits are normal. IMPRESSION: 1. No acute intracranial abnormality. 2. Mild chronic microangiopathy. CXR--PER RADIOLOGIST REPORT AT 191 FINDINGS: The lungs slightly hyperinflated with a vague nodularity in the peripheral right mid lung stable, likely a calcified granuloma. There are no infiltrates. No pneumothorax. Heart and pulmonary vasculature normal. IMPRESSION: 1. Chronic findings. No acute cardiopulmonary process. CT ANGIOGRAM HEAD / NECK--PER RADIOLOGIST REPORT AT 2020 FINDINGS: Atherosclerotic disease is noted, bilaterally, at the carotid bulbs extending into the proximal internal and external carotid arteries with atherosclerotic disease in the internal carotid arteries at the clinoid. No significant stenosis is appreciated. No occlusion. Internal carotid arteries appear normal without stenosis aneurysmal dilatation or dissection. Vertebral artery origins are normal. Within the intracranial aspects of the left vertebral artery there is a small protuberance noted on images 381 and 383, possibly a small aneurysmal dilatation. No adjacent hemorrhage is appreciated. There is no significant stenosis or evidence for occlusion. No vertebral artery dissection. Ramos-white matter differentiation is normal. There is no mass mass effect or midline shift. There is no hydrocephalus. No soft tissue abnormality is seen. No osseus lesion or fracture is seen. Limited views of the superior thorax are unremarkable. IMPRESSION: No acute abnormality is appreciated with areas of scattered atherosclerotic disease, as above, without dissection or occlusion. Mild protuberance along the intracranial aspect of the left vertebral artery may be normal for this patient with a small focal aneurysm not excluded. CT HEAD PERFUSION--PER DR. DICKENS, RADIOLOGIST, VIA PHONE AT [phone] -NO LARGE VESSEL OCCLUSION. Reviewed: Reviewed by Me, Discussed w/Radiologist Departure Impression Primary Impression: TRANSIENT PARESTHESIAS Additional Impressions: HTN (hypertension) Illicit drug use Disposition: HOME, SELF-CARE Condition: Improved Departure-Patient Inst. Decision time for Depature: 21:08 Referrals: [facility] (PCP/Family) Primary Care Physician Patient Instructions: Polysubstance Use Disorder (DC), DASH Diet, High Blood Pressure in Adults, Paresthesia (DC), Transient Ischemic Attack (DC) Add. Discharge Instructions: HOME, REST NO DRUGS OR ALCOHOL OR SMOKING. FOLLOW UP WITH [facility] IN 1-2 DAYS FOR FURTHER CARE. TAKE 81 MG ASPIRIN DAILY RETURN TO ER IF SYMPTOMS WORSEN All discharge instructions reviewed with patient and/or family. Voiced understanding. HERACLIO OLIVIA DO Apr 22, 2022 19:05
[2022-04-22 19:10] LABS: CHLORIDE 100 MMOL/L (98-107); POTASSIUM 3.9 MMOL/L (3.6-5.0); SODIUM 137 MMOL/L (135-145)
[2022-04-22 19:11] LABS: ALBUMIN 4.1 GM/DL (3.2-4.5)
[2022-04-22 19:12] LABS: CALCIUM 9.5 MG/DL (8.5-10.1)
--- NOTE | 2022-04-22 19:12 | Diagnostic Imaging Report ---
EXAMINATION: CT head without contrast. TECHNIQUE: Multiple contiguous axial images were obtained through the brain without the use of intravenous contrast. All CT scans use one or more of the following dose optimizing techniques: automated exposure control, MA and/or KvP adjustment based on patient size and exam type or iterative reconstruction. HISTORY: Left-sided numbness and weakness COMPARISON: None available. FINDINGS: The ventricles and sulci are normal. Mild hypodensities throughout the supratentorial white matter of both cerebral hemispheres. No acute intracranial hemorrhage or abnormal extra-axial fluid collections are present. Calcification of the intracranial ICAs. No hyperdense vessel. The calvarium is intact. The mastoid air cells are clear. Mucosal thickening of the paranasal sinuses. The orbits are normal. IMPRESSION: 1. No acute intracranial abnormality. 2. Mild chronic microangiopathy. Findings communicated to Dr. Orozco by Dr. Nathan Shafer at 7:07 PM on 04/22/2022. Dictated by: Dictated on workstation # [id number]
[2022-04-22 19:13] LABS: GLUCOSE 90 MG/DL (70-105); TOTAL PROTEIN 8.1 GM/DL (6.4-8.2)
[2022-04-22 19:14] LABS: CARBON DIOXIDE 27 MMOL/L (21-32)
--- NOTE | 2022-04-22 19:14 | Diagnostic Imaging Report ---
INDICATION: Left-sided numbness, double vision. Weakness EXAMINATION: Chest 04/22/2022 COMPARISON: 03/12/2022 FINDINGS: The lungs slightly hyperinflated with a vague nodularity in the peripheral right mid lung stable, likely a calcified granuloma. There are no infiltrates. No pneumothorax. Heart and pulmonary vasculature normal. IMPRESSION: 1. Chronic findings. No acute cardiopulmonary process. Dictated by: Dictated on workstation # [id number]
[2022-04-22 19:15] LABS: BILIRUBIN,TOTAL 0.9 MG/DL (0.1-1.0); ERYTHROCYTE SEDIMENTATION RATE 3 MM/HR (0-30)
[2022-04-22 19:17] LABS: ALKALINE PHOSPHATASE 118 U/L (40-136); CREATININE SERUM 1.01 MG/DL (0.60-1.30); GFR ESTIMATED 85
[2022-04-22 19:18] LABS: ACETAMINOPHEN < 10 UG/ML (10-30); BUN/CREATININE RATIO 19
[2022-04-22 19:20] LABS: ALANINE AMINOTRANSFERASE 105 U/L (0-55); CREATINE KINASE 90 U/L (30-200)
[2022-04-22] MEDS ORDERED: NS 100 ML (IVPB) BAG IV ONE ×2 (19:30)
[2022-04-22] MEDS ORDERED: IOHEXOL 350 MG/ML 100 ML (OMNIPAQUE 350) VIAL IV ONE ×2 (19:30)
[2022-04-22] MEDS ORDERED: CATHETER FLUSH 10 ML SYR IV PRN (19:30)
[2022-04-22] MEDS ORDERED: LABETALOL HCL 20 MG/4 ML VIAL IV ONE (19:30)
[2022-04-22 19:40] LABS: TSH (THYROID ANALYZER) 1.12 UIU/ML (0.35-4.94)
[2022-04-22 19:44] LABS: FIBRIN DEGRADATION PRODUCTS 0.58 UG/ML (0.00-0.49); PROTHROMBIN TIME PATIENT 13.7 SEC (12.2-14.7)
--- NOTE | 2022-04-22 20:10 | Diagnostic Imaging Report ---
HISTORY: Strokelike symptoms. Numbness on left side. Double vision. Generalized weakness. EXAMINATION: CT head and neck, 04/22/2022. COMPARISON: Correlation made to a CT brain without contrast from the same date. FINDINGS: Atherosclerotic disease is noted, bilaterally, at the carotid bulbs extending into the proximal internal and external carotid arteries with atherosclerotic disease in the internal carotid arteries at the clinoid. No significant stenosis is appreciated. No occlusion. Internal carotid arteries appear normal without stenosis aneurysmal dilatation or dissection. Vertebral artery origins are normal. Within the intracranial aspects of the left vertebral artery there is a small protuberance noted on images 381 and 383, possibly a small aneurysmal dilatation. No adjacent hemorrhage is appreciated. There is no significant stenosis or evidence for occlusion. No vertebral artery dissection. Ramos-white matter differentiation is normal. There is no mass mass effect or midline shift. There is no hydrocephalus. No soft tissue abnormality is seen. No osseus lesion or fracture is seen. Limited views of the superior thorax are unremarkable. IMPRESSION: No acute abnormality is appreciated with areas of scattered atherosclerotic disease, as above, without dissection or occlusion. Mild protuberance along the intracranial aspect of the left vertebral artery may be normal for this patient with a small focal aneurysm not excluded. Dictated by: Dictated on workstation # [id number]
[2022-04-22 20:13] LABS: BILIRUBIN,URINE NEGATIVE (NEGATIVE); CLARITY,URINE CLEAR; COLOR,URINE YELLOW; GLUCOSE, URINE (UA) NEGATIVE (NEGATIVE); KETONES,URINE NEGATIVE (NEGATIVE); LEUKOCYTE ESTERASE ,URINE NEGATIVE (NEGATIVE); NITRITE,URINE NEGATIVE (NEGATIVE); PROTEIN,URINE NEGATIVE (NEGATIVE)
[2022-04-22 20:41] LABS: AMPHETAMINE SCREEN, URINE POSITIVE (NEGATIVE); BARBITURATE SCREEN URINE NEGATIVE (NEGATIVE); BENZODIAZEPINES SCREEN URINE POSITIVE (NEGATIVE); CANNABINOID SCREEN, URINE POSITIVE (NEGATIVE); COCAINE SCREEN URINE NEGATIVE (NEGATIVE); METHADONE STAT NEGATIVE (NEGATIVE); OPIATE SCREEN URINE NEGATIVE (NEGATIVE); OXYCODONE STAT NEGATIVE (NEGATIVE); PROPOXYPHENE STAT NEGATIVE (NEGATIVE); TRICYCLIC ANTIDEPRESSANTS SCRE NEGATIVE (NEGATIVE)
[2022-04-22 20:45] LABS: BACTERIA,URINE NEGATIVE /HPF; URINE OTHER FEW SPERM /HPF
[2022-04-22 21:19] VITALS: BP 160/108
--- NOTE | 2022-04-23 07:06 | Diagnostic Imaging Report ---
CT HEAD PERFUSION W/ CONTRAST INDICATION: Left-sided numbness and double vision. COMPARISON: None available. TECHNIQUE: CT perfusion imaging of the head was performed with IV contrast. 3-D MIP reformats were created. Rapid perfusion software was utilized. FINDINGS: There is mild patient motion artifact during the scan. The selected arterial and venous region of interests are appropriate. The perfusion maps show no abnormality in the cerebral blood volume, cerebral blood flow, main transit time or time to maximal perfusion. IMPRESSION: No features of ischemia or infarct. Dictated by: Dictated on workstation # [id number]
== END 2022-04-22 21:20 | disposition home or self-care (01) ==
LOC: EDUNIT# 18:44 → ER 18:46
DX: R20.2 Paresthesia of skin (principal); J44.9 Chronic obstructive pulmonary disease, unspecified; F19.90 Other psychoactive substance use, unspecified, uncomplicated; I10 Essential (primary) hypertension; F17.210 Nicotine dependence, cigarettes, uncomplicated; Z20.822 Contact with and (suspected) exposure to COVID-19; Z28.310 Unvaccinated for COVID-19
CPT/HCPCS: 0042T; 70450; 70496; 70498; 71045; 80053; 80306; 81000; 82550; 82553; 82947; 83735; 83874; 83880; 84443; 84484; 85025; 85379; 85610; 85652; 85730; 86141; 87636; 93041; 99284; G0480 ×2; 36415; 80320; 80329; 93005

== ENCOUNTER 2022-08-24 22:08 | Observation (INO) | payer OTHER ==
[~2022-08-24] VITALS: Ht 172 cm; Wt 71.7 kg
--- NOTE | 2022-08-24 22:27 | ED GI ---
General Chief Complaint: Foreign Body Stated Complaint: FOREIGN BODY STUCK IN THROAT Nursing Triage Note: pt presents to ED woth c/o a piece of pork tenderloin stuck in throat x 30ish minutes. pt unable to swallow water and is coughing up white foam. Source of Information: Patient History of Present Illness Date Seen by Provider: August 24, 2022 Time Seen by Provider: 22:15 Initial Comments PT ARRIVES VIA POV FROM HOME PT STATES HE HAS A PIECE OF PORK TENDERLOIN STUCK IN HIS THROAT FOR THE LAST 30 MINUTES NO PROBLEMS TALKING OR BREATHING HE IS CONSTANTLY SPITTING UP SALIVA AND GAGGING AND TRYING TO MAKE HIMSELF THROW UP. HE IS UNABLE TO SWALLOW WATER OR SALIVA. NO HISTORY OF SIMILAR PT STATES HIS ONLY MEDICAL PROBLEM IS COPD AND HE USES AN INHALER PRN [facility] Allergies and Home Medications Allergies Coded Allergies: No Known Drug Allergies (Unverified , 02/12/12) Patient Home Medication List Albuterol (Proventil) 17 Gm Inh, 1-2 PUFF IH UD, (Reported) Entered as Reported by: CONSTANTINO STALEY on 11/05/13 1605 Amoxicillin/Potassium Clav (Augmentin 875-125 Tablet) 1 Each Tablet, 1 EACH PO BID Prescribed by: BRYAN TAPIA on 10/10/20 1141 Cyclobenzaprine Hcl (Cyclobenzaprine Hcl) 10 Mg Tablet, 1 EACH PO Q8HR Prescribed by: HERACLIO OLIVIA on 11/05/13 1749 Hydrocodone/Acetaminophen (Hydrocodone-Acetamin 5-325 mg) 1 Each Tablet, 1 TAB PO Q4H PRN for PAIN-MODERATE (5-7) Prescribed by: BRYAN TAPIA on 10/10/20 1142 Naproxen (Naprosyn) 500 Mg Tablet, 1 EACH PO TID PRN for PAIN Prescribed by: HERACLIO OLIVIA on 11/05/13 1749 Review of Systems Review of Systems Constitutional: no symptoms reported EENTM: See HPI Respiratory: No Symptoms Reported Gastrointestinal: See HPI Psychiatric/Neurological: Anxiety Past Ubjckao-Bavppo-Minrln Hx Patient Social History Tobacco Use?: Yes Tobacco type used: Cigarettes Immunizations Up To Date Tetanus Booster (TDap): Unknown Past Medical History Surgery/Hospitalization HX: copd, htn Surgeries: Yes Appendectomy Respiratory: Yes COPD Cardiac: Yes Hypertension Reproductive Disorders: No Sexually Transmitted Disease: No HIV/AIDS: No Genitourinary: No Gastrointestinal: No Musculoskeletal: No Endocrine: No HEENT: No Cancer: No Psychosocial: No Integumentary: No Blood Disorders: No Family Medical History SOCIAL HISTORY: -SMOKES 1 PPD -ETOH--"OCCASIONAL" USE -DRUGS--DENIES USE, BUT UDS + FOR AMPHETAMINES/METHAMPHETAMINES, THC, BENZODIAZEPINES ON 04/22/22 Physical Exam Vital Signs Vital Signs - First Documented 08/24/22 22:14 Pulse 92 Resp 18 B/P (MAP) 133/100 (111) Pulse Ox 97 O2 Delivery Room Air Capillary Refill : Height/Weight/BMI Height: 5'8" Weight: 150lbs. oz. 68.021499ds; 23.00 BMI Method:Stated General Appearance: other (EXTREMELY ANXIOUS, VERY DRAMATIC, CONSTANT MOVEMENTS, CONSTANTLY SPITTING UP SALIVA AND GAGGING. HE IS ABLE TO TALK IN FULL SENTENCES, NO DYSPNEA. DIRTY/UNKEMPT) Respiratory: normal breath sounds Cardiovascular: regular rate, rhythm Gastrointestinal: non tender Neurologic/Psychiatric: no motor/sensory deficits, alert, oriented x 3 Skin: normal color, warm/dry, tattoos/piercings (EXTENSIVE TATTOOS) Progress/Results/Core Measures Results/Orders My Orders Orders - HERACLIO OLIVIA DO Ed Iv/Invasive Line Start (08/24/22 22:19) Monitor-Rhythm Ecg Trace Only (08/24/22 22:19) Alcohol (08/24/22 22:19) Cbc With Automated Diff (08/24/22 22:19) Comprehensive Metabolic Panel (08/24/22 22:19) Chest 1 View, Ap/Pa Only (08/24/22 22:19) Ed Iv/Invasive Line Start (08/24/22 22:19) Lactated Ringers (Lr 1000 Ml Iv Solution (08/24/22 22:30) Glucagon Emergency Kit (Glucagon Emergen (08/24/22 22:30) Vital Signs/I&O 08/24/22 22:14 Pulse 92 Resp 18 B/P (MAP) 133/100 (111) Pulse Ox 97 O2 Delivery Room Air Blood Pressure Mean: 111 Departure Departure-Patient Inst. Referrals: [facility] (PCP/Family) Primary Care Physician HERACLIO OLIVIA DO August 24, 2022 22:27
[2022-08-24] MEDS ORDERED: GLUCAGON EMERGENCY 1 MG/KIT IV ONE ×2 (22:30→22:45)
[2022-08-24] MEDS ORDERED: LACTATED RINGERS 1,000 ML IV ONE (22:30)
[2022-08-24 22:35] LABS: BASOPHILS # (AUTO) 0.1 10^3/uL (0.0-0.1); BASOPHILS % (AUTO) 1 % (0-10); EOSINOPHILS # (AUTO) 0.4 10^3/uL (0.0-0.3); EOSINOPHILS % (AUTO) 3 % (0-10); HEMATOCRIT 48 % (40-54); HEMOGLOBIN 16.9 g/dL (13.3-17.7); LYMPHOCYTES # (AUTO) 2.4 10^3/uL (1.0-4.0); LYMPHOCYTES % (AUTO) 19 % (12-44); MEAN CORPUSCULAR HEMOGLOBIN 30 pg (25-34); MEAN CORPUSCULAR HGB CONC 35 g/dL (32-36); MEAN CORPUSCULAR VOLUME 86 fL (80-99); MEAN PLATELET VOLUME 9.5 fL (9.0-12.2); MONOCYTES # (AUTO) 0.9 10^3/uL (0.0-1.0); MONOCYTES % (AUTO) 7 % (0-12); NEUTROPHILS # (AUTO) 8.6 10^3/uL (1.8-7.8); NEUTROPHILS % (AUTO) 70 % (42-75); PLATELET COUNT 308 10^3/uL (130-400); WHITE BLOOD COUNT 12.4 10^3/uL (4.3-11.0)
[2022-08-24] MEDS ORDERED: fentaNYL INJ 100 MCG/2 ML AMP ONE (22:54)
[2022-08-24] MEDS ORDERED: ONDANSETRON 4 MG/2 ML (SDV) Z0FRAN ONE (22:54)
[2022-08-24] MEDS ORDERED: PANTOPRAZOLE 40 MG (PROTONIX) VIAL ONE (22:55)
[2022-08-24] MEDS ORDERED: NITROGLYCERIN 0.4 MG SL TABS BTL 25'S SL ONE (22:55)
[2022-08-24] MEDS ORDERED: LORazepam INJ 2 MG/ML (ATIVAN) VIAL ONE (22:55)
[2022-08-25] VITALS (8 sets, daily range): BP systolic 119–163; BP diastolic 67–97
[2022-08-25 07:06] LABS: ALBUMIN 4.1 GM/DL (3.2-4.5); ALKALINE PHOSPHATASE 139 U/L (40-136); BILIRUBIN,TOTAL 0.9 MG/DL (0.1-1.0); CALCIUM 9.7 MG/DL (8.5-10.1); CARBON DIOXIDE 26 MMOL/L (21-32); CHLORIDE 101 MMOL/L (98-107); GLUCOSE 110 MG/DL (70-105); POTASSIUM 4.2 MMOL/L (3.6-5.0); SODIUM 140 MMOL/L (135-145); TOTAL PROTEIN 7.7 GM/DL (6.4-8.2)
[2022-08-25 07:07] LABS: BUN/CREATININE RATIO 16; CREATININE SERUM 1.15 MG/DL (0.60-1.30); GFR ESTIMATED 73
[2022-08-25 07:18] LABS: ALANINE AMINOTRANSFERASE 277 U/L (0-55)
--- NOTE | 2022-08-25 07:27 | Diagnostic Imaging Report ---
INDICATION: Esophageal foreign body AP views of the neck and chest are obtained. There are significant degenerative findings in the cervical spine, however, no radiopaque foreign object is seen along the cervical or thoracic esophagus. There is no evidence of pneumothorax. IMPRESSION: No unexpected radiopaque object is appreciated to indicate esophageal foreign body. Dictated by: Dictated on workstation # [id number]
[2022-08-25] MEDS ORDERED: LACTATED RINGERS 1,000 ML IV ONE (09:00)
[2022-08-25] MEDS ORDERED: fentaNYL INJ 100 MCG/2 ML AMP IVP PRN (09:15)
[2022-08-25] MEDS ORDERED: diphenhydrAMINE 50 MG/ML INJ (BENADRYL) IVP PRN (09:15)
[2022-08-25] MEDS ORDERED: LORazepam INJ 2 MG/ML (ATIVAN) VIAL IVP PRN (09:15)
[2022-08-25] MEDS ORDERED: LACTATED RINGERS 1,000 ML IV SCH (09:15)
[2022-08-25] MEDS ORDERED: PROMETHAZINE INJ 25 MG/ML (PHENERGAN) AMP IVP PRN (09:15)
[2022-08-25] MEDS ORDERED: ONDANSETRON 4 MG/2 ML (SDV) Z0FRAN IVP PRN (09:15)
[2022-08-25] MEDS ORDERED: LACTATED RINGERS 1,000 ML IV STA (09:33)
--- NOTE | 2022-08-25 09:36 | Progress Note-Pre Operative ---
Pre-Operative Progress Note Date of Available H&P: August 25, 2022 Date H&P Reviewed: August 25, 2022 Time H&P Reviewed: 09:00 History & Physical: No changes noted Pre-Operative Diagnosis: dysphagia, esophageal FB GEOVANNY RECINOS MD August 25, 2022 09:36
[2022-08-25] MEDS ORDERED: OMEP40CA6 PO (09:37)
--- NOTE | 2022-08-25 09:38 | Discharge Inst-Surgical ---
D/C Lap Instructions-KIDO New, Converted, or Re-Newed RX: RX on Chart Follow Up Activity as tolerated High Fiber Diet 25g or more per day Avoid Alcohol, Caffeine, Spicy Roann and Acid foods. Drink 64 fluid oz or more of fluids per day. Symptoms to Report: Fever over 101 degree F, Nausea/Vomiting If any problems/questions: Contact your physician or go to Emergency Room EGOVANNY RECINOS MD August 25, 2022 09:38
[2022-08-25] MEDS ORDERED: HURRICAINE EXT TUBE (BENZOCAINE) XX PRN (09:45)
[2022-08-25] MEDS ORDERED: LIDOCAINE JELLY 2% 6 ML SYRINGE MM PRN (09:45)
[2022-08-25] MEDS ORDERED: PROPOFOL INJECTION 50 ML IV ONE (09:52)
[2022-08-25] MEDS ORDERED: LIDOCAINE JELLY 2% 6 ML SYRINGE ONE (10:01)
[2022-08-25] MEDS ORDERED: LABETALOL HCL 20 MG/4 ML VIAL ONE (10:43)
--- NOTE | 2022-08-25 10:45 | HISTORY AND PHYSICAL ---
ATTENDING PRIMARY MUSIC PROFESSOR: Iris [facility]. HISTORY OF PRESENT ILLNESS: The patient is a 62-year-old male, who presented to the Emergency Department last night after difficulty in swallowing after taking in a food bolus. He reports eating pork tenderloin and felt a substernal pressure sensation and he tried to push this down with liquids; however, would have worsening issues with pressure as well as have regurgitation and then eventually the inability to swallow his saliva. He reports that he does not report any history of any significant gastroesophageal reflux disease. He does have risk factors for this including a significant smoking history. The patient is able to talk and protect his airway. His vital signs are stable. He does not report any hematemesis, no coffee-ground emesis. He does report some substernal pressure sensation, no peritoneal signs. He states that this is his first episode of dysphagia. PAST MEDICAL HISTORY: COPD, hypertension, degenerative joint disease. PAST SURGICAL HISTORY: Appendectomy. ALLERGIES: NO KNOWN DRUG ALLERGIES. MEDICATIONS: Albuterol inhaler 1-2 puffs p.r.n., Augmentin 875 mg b.i.d., cyclobenzaprine 10 mg q.8 hours, hydrocodone p.r.n., naproxen 500 mg t.i.d. p.r.n. SOCIAL HISTORY: Positive smoke, 40-pack years. Social alcohol. FAMILY HISTORY: Noncontributory. VITAL SIGNS: Temperature 36.6, blood pressure 163/97, pulse 75, respirations 18, pulse ox 93% on room air. REVIEW OF SYSTEMS: Well-nourished male, in no acute distress. He is not experiencing any shortness of breath or difficulty in breathing. No cough or sputum production. A difficulty swallowing with substernal pressure sensation. No hematemesis, no coffee-ground emesis. No diarrhea or constipation. No red blood per rectum, no dark tarry stools. No fever or chills. No recent inadvertent weight loss. All other review of systems is negative. PHYSICAL EXAMINATION: CHEST: Distant breath sounds and scattered wheezes bilaterally. HEART: Regular. No murmurs. EXTREMITIES: No lower extremity edema. Negative Homans sign. HEENT: No scleral icterus. No cervical lymphadenopathy. ABDOMEN: Soft. There is mild discomfort in the epigastric region upon deep palpation. No hernias, no peritoneal signs. SKIN: Warm, dry. LABORATORY DATA: WBC 12.4, hemoglobin 16.9, hematocrit 48, platelets 308. BUN 18, creatinine 1.15. ASSESSMENT AND PLAN: A 62-year-old male with an atypical gastroesophageal reflux disease and likely esophageal stricture with an esophageal foreign body. We will proceed with EGD and removal of the foreign body as well as biopsies as appropriate as well as a balloon dilatation of the distal esophageal stricture if one is identified. Job ID: [id number] DocumentID: [id number] Dictated Date: 08/25/2022 09:35:33 Refrigeration Engineering Teacher Date: 08/25/2022 10:16:00 Dictated By: GEOVANNY RECINOS MD
[2022-08-25] MEDS ORDERED: RT-ALBUINH INH (11:41)
[2022-08-25] MEDS ORDERED: ALBU2.5V4 INH (11:42)
[2022-08-25] MEDS ORDERED: IBUP-2473 PO (11:43)
[2022-08-25] MEDS ORDERED: ACET-2267 PO (11:43)
[2022-08-25] MEDS ORDERED: BUDE10.22 IH (11:49)
--- NOTE | 2022-08-25 21:05 | OPERATIVE REPORT ---
DATE OF SERVICE: 08/24/2022 ATTENDING MANAGER INFORMATION: [facility] [place]. PREOPERATIVE DIAGNOSES: Dysphagia, esophageal foreign body. POSTOPERATIVE DIAGNOSES: Dysphagia, esophageal foreign body, reflux esophagitis [place] grade C with distal esophageal stricture, moderate size hiatal hernia, 2.5-3 cm in size. Moderate gastritis. No distal obstruction. PROCEDURE: EGD and removal of esophageal foreign body, biopsy, balloon dilatation. SURGEON: Geovanny Recinos MD ANESTHESIA: Monitored anesthesia care. ESTIMATED BLOOD LOSS: Minimal. FINDINGS: Dysphagia, esophageal foreign body, reflux esophagitis [place] grade C with distal esophageal stricture, moderate size hiatal hernia, 2.5-3 cm in size. Moderate gastritis. No distal obstruction. DISPOSITION: The patient tolerated the procedure well. INDICATIONS: The patient is a 62-year-old male who presented with substernal pressure sensation after a food bolus and after that tried to drink water; however, this worsened the substernal pressure sensation, and since that time, it has been difficulty swallowing saliva. Since being admitted and placed on IV fluids and Ativan, he has not had any issues with dysphagia. He also has not had any respiratory issues. He reports that he has had a history of reflux in the past year; however, states not severe. He reports that this is his first incidence as well. DESCRIPTION OF PROCEDURE: The patient was brought to the endoscopy suite and laid in the left lateral decubitus position. After adequate IV pain and sedative medications and monitored anesthesia care, the mouthpiece was applied. The endoscope was placed in the mouth, visualizing the pharynx and hypopharyngeal region. Vocal cords, epiglottis, and vallecula identified and appeared to be normal. The endoscope was then gently intubated in the esophageal opening and esophagus insufflated. The endoscope was then advanced through the first, second, and third portion of esophagus at the level of the distal esophagus and esophageal foreign body identified consistent with a bolus of meat. We then proceeded with removal of the esophageal foreign body in piecemeal fashion using a Hatfield net. Once the food bolus small enough, this reduced into the stomach without any resistance. Reflux esophagitis [place] grade C identified as well as the distal esophageal stricture. A biopsy was taken of the GE junction with forceps with visualization of good hemostasis. The endoscope was then advanced into the stomach and endoscope retroflexed, visualizing a small to moderate size hiatal hernia, 2.5-3 cm in size. There was moderate severity gastritis. No ulcers, polyps, or any neoplasms. A biopsy was taken of the stomach, antrum to rule out H. pylori with visualization of good hemostasis. The endoscope was then advanced to the pylorus and the first and second portion of the duodenum which appeared normal with no distal obstructions. The balloon was then placed in the stomach and pulled back to the area of the stricture. We then proceeded with dilatation in a graded stepwise fashion from 2, 4, then eventually 5 atmospheres of pressure or approximately 19.5 mm in luminal diameter with moderate resistance and left this in place for 120 seconds. The balloon was then desufflated and removed with visualization of good hemostasis as well as no mucosal tears. The endoscope was then slowly withdrawn while taking a second look and suctioning of residual air with no additional findings. The patient tolerated the procedure well. He will need to proceed with the necessary lifestyle and dietary accommodation including smoking cessation as well as decreasing caffeinated beverages, spicy, greasy, and acidic foods. He also need to take small and more frequent meals and avoid eating at night. He also needs to avoid the foods that do cause his dysphagia. We will also start him on omeprazole 40 mg daily. We will also recommend that he follows up in 6 months for scheduling for a repeat EGD and dilatation to a goal of 20 mm to prevent any further episodes of the dysphagia and esophageal foreign bodies. Job ID: [id number] DocumentID: [id number] Dictated Date: 08/25/2022 10:48:00 Casting Operator Helper Date: 08/25/2022 15:55:00 Dictated By: GEOVANNY RECINOS MD [facility]
[2022-08-26] MEDS ORDERED: PANTOPRAZOLE 40 MG (PROTONIX) VIAL IV SCH (09:00)
== END 2022-08-25 14:00 | disposition home or self-care (01) ==
LOC: EDUNIT# 22:08 → ER 22:10 → 4TH 23:44
PROVIDERS: ADMIT Surgery; ATTEND Surgery
DX: K21.00 Gastro-esophageal reflux disease with esophagitis, without bleeding (principal); T18.128A Food in esophagus causing other injury, initial encounter; K22.2 Esophageal obstruction; K44.9 Diaphragmatic hernia without obstruction or gangrene; K29.70 Gastritis, unspecified, without bleeding; F17.210 Nicotine dependence, cigarettes, uncomplicated; Z28.310 Unvaccinated for COVID-19
CPT/HCPCS: 36415; 71045; 80053; 80320; 85025; 96374; 96375

== ENCOUNTER 2022-11-12 13:34 | Emergency (ER) | payer OTHER ==
[~2022-11-12] VITALS: Ht 172.7 cm; Wt 70.3 kg
[~2022-11-12 13:34] MED LIST changes: +ACET-2267 PO; +ALBU2.5V4 INH; +BUDE10.22 IH; +IBUP-2473 PO; +OMEP40CA6 PO; +RT-ALBUINH INH
[2022-11-12] MEDS ORDERED: ORPHENADRINE 60 MG/2 ML (NORFLEX) AMP (ED ONLY) IM ONE (13:45)
[2022-11-12] MEDS ORDERED: KETOROLAC INJ 30 MG/ML VIAL IM ONE (13:45)
--- NOTE | 2022-11-12 13:48 | ED Fall/Injury ---
General Chief Complaint: Trauma-Non Activation Stated Complaint: FALL Source: patient Exam Limitations: no limitations History of Present Illness Date Seen by Provider: Nov 12, 2022 Time Seen by Provider: 13:42 Initial Comments Patient is a 62-year-old male who presents ED by EMS for evaluation after a fall. Patient fell 45 minutes ago. Patient states he was walking over his dog lost his balance fell backward hitting the slay of his bed. Patient reports atilio ding on his mid to lower back and right side. Patient states he immediately fell to the ground denies hit his head or loss of conscious or on blood thinners. Was able to stand started having a burning sensation in his lower to mid back. Patient states he was able to walk and bear some weight. Pain increased. Called EMS and was brought to ED by EMS. Patient denies taking thing for pain. Reports recent meth use and marijuana use. Denies any chest pain, shortness of breath, headache, abdominal pain, dizziness, nausea, vomiting, bowel or urine incontinence, saddle paresthesia. Allergies and Home Medications Allergies Coded Allergies: No Known Drug Allergies (Unverified , 02/12/12) Patient Home Medication List Home Medication List Reviewed: Yes Acetaminophen (Tylenol Extra Strength) 500 Mg Tablet, 1,000 MG PO Q8H PRN for PAIN-MILD (1-4), (Reported) Entered as Reported by: FANTASMA MONTES on 08/25/22 1143 Albuterol Sulfate (Proventil Hfa) 6.7 Gm Hfa.aer.ad, 2 PUFF INH Q6H PRN for SHORTNESS OF BREATH, (Reported) Entered as Reported by: FANTASMA MONTES on 08/25/22 1141 Albuterol Sulfate (Albuterol Sulfate) 2.5 Mg/3 Ml (0.083 %) Vial.neb, 2.5 MG INH Q6H PRN for SHORTNESS OF BREATH, (Reported) Entered as Reported by: FANTASMA MONTES on 08/25/22 1142 Budesonide/Formoterol Fumarate (Symbicort 80-4.5 Mcg Inhaler) 80 Mcg-4.5 Mcg/Actuation Hfa.aer.ad, 2 PUFF IH BID, (Reported) Entered as Reported by: FANTASMA MONTES on 08/25/22 1149 Cyclobenzaprine HCl (Cyclobenzaprine HCl) 10 Mg Tablet, 10 MG PO TID Prescribed by: EMMETT CARDOZO on 11/12/22 1536 Naproxen (Naproxen) 500 Mg Tablet, 500 MG PO Q12H Prescribed by: EMMETT CARDOZO on 11/12/22 1536 Omeprazole (Omeprazole) 40 Mg Capsule.dr, 40 MG PO DAILY Prescribed by: GEOVANNY RECINOS on 08/25/22 0937 Review of Systems Review of Systems Constitutional: No chills, No diaphoresis Eyes: Denies Drainage, Denies Decreased Acuity Ears, Nose, Mouth, Throat: denies ear pain, denies ear discharge Respiratory: No cough, No dyspnea on exertion Cardiovascular: No chest pain Gastrointestinal: No abdominal pain, No diarrhea, No nausea, No vomiting Genitourinary: No decreased output, No discharge Musculoskeletal: back pain; No joint pain; muscle pain, muscle stiffness Skin: No change in color, No change in hair/nails All Other Systems Reviewed Negative Unless Noted: Yes Past Jpymext-Zxvmve-Kwtkiv Hx Immunizations Up To Date Tetanus Booster (TDap): Unknown Past Medical History Surgery/Hospitalization HX: copd, htn Surgeries: Yes Appendectomy Respiratory: Yes COPD Cardiac: Yes Hypertension Reproductive Disorders: No Sexually Transmitted Disease: No HIV/AIDS: No Genitourinary: No Gastrointestinal: No Musculoskeletal: No Endocrine: No HEENT: No Cancer: No Psychosocial: No Integumentary: No Blood Disorders: No Family Medical History SOCIAL HISTORY: -SMOKES 1 PPD -ETOH--"OCCASIONAL" USE -DRUGS--DENIES USE, BUT UDS + FOR AMPHETAMINES/METHAMPHETAMINES, THC, BENZODIAZEPINES ON 04/22/22 Physical Exam Vital Signs Vital Signs - First Documented 11/12/22 13:34 Temp 36.2 Pulse 84 Resp 16 B/P (MAP) 170/105 (126) Pulse Ox 97 Capillary Refill : Height, Weight, BMI Height: 5'8" Weight: 150lbs. oz. 68.049925is; 24.23 BMI Method:Stated General Appearance: WD/WN, no apparent distress HEENT: PERRL/EOMI, normal ENT inspection, TMs normal, pharynx normal Neck: non-tender, full range of motion, supple Cardiovascular: regular rate, rhythm, no edema, no gallop, no JVD Respiratory: chest non-tender, lungs clear, normal breath sounds Gastrointestinal: normal bowel sounds, non tender, soft, no organomegaly Pelvic: normal external exam Back: vertebral tenderness (Thoracic and lumbar midline tenderness. Mild right-sided paraspinal muscle tenderness) Extremities: normal range of motion, non-tender, normal inspection, no pedal edema Neurologic/Psychiatric: forestry tree pruner II-XII nml as tested, no motor/sensory deficits, alert, normal mood/affect, oriented x 3 Skin: normal color Candor Coma Score Best Eye Response: (4) Open Spontaneously Best Verbal Response: (5) Oriented Best Motor Response: (6) Obeys Commands Brien Total: 15 Progress/Results/Core Measures Results/Orders My Orders Orders - LUZ MARIA PALMER Ct Thoracic/Lumbar Spine Wo (11/12/22 13:41) Ketorolac Injection (Ketorolac Injection (11/12/22 13:45) Orphenadrine Inj (Ed Only) (Norflex Inje (11/12/22 13:45) Medications Given in ED Current Medications Medications Dose Ordered Sig/Cehlsea Route Start Time Stop Time Status Last Admin Dose Admin Ketorolac Tromethamine 30 mg ONCE ONCE IM 11/12/22 13:45 11/12/22 13:46 DC 11/12/22 13:51 30 MG Orphenadrine Citrate 60 mg ONCE ONCE IM 11/12/22 13:45 11/12/22 13:46 DC 11/12/22 13:52 60 MG Vital Signs/I&O 11/12/22 11/12/22 13:34 15:33 Temp 36.2 Pulse 84 73 Resp 16 B/P (MAP) 170/105 (126) 169/111 Pulse Ox 97 96 Departure Communication (PCP) Patient presents to ED by EMS for evaluation for middle lower back pain. This was a mechanical fall. Denies hitting his head or loss conscious. GCS of 15. Alert and orient x4. Differential diagnosis spinal fracture, muscle contusion, muscle strain. Patient has no focal neural deficits. Patient received Toradol and Norflex with improvement in pain. Tender along the thoracic and lumbar spine. Mild tenderness to the right lumbar paraspinal. Pain with movement. Due to mechanism of injury and location of pain CT scan of the thoracic and lumbar spine was ordered. CT scan shows a acute nondisplaced fracture of the L1 transverse process. Chronic degenerative changes noted and was discussed with patient. Recommend further outpatient follow-up with results with your PCP. due to the injury patient was discussed with neurosurgeon Dr. Casey at [facility]. Discussed results. Recommend conservative treatment. Does not necessarily need a brace. No further imaging needed at this time or immediate follow up. Patient does not want narcotics. Patient will be discharged on naproxen and muscle relaxers. Patient was requesting a brace. Will discharge with TLSO brace. If any worsening symptoms return back to ED such as increasing pain, bowel or urine incontinence, saddle paresthesia, lower extremity weakness or sensory changes. Neurosurgery outpatient follow-up for [id number] Impression Primary Impression: Lumbar transverse process fracture Disposition: HOME, SELF-CARE Condition: Stable Departure-Patient Inst. Decision time for Depature: 15:31 [facility]: [facility] [place] Primary Care Physician Patient Instructions: Low Back Pain ED Add. Discharge Instructions: Recommend follow-up with your primary care physician for further evaluation. Recommend follow-up with your blood pressure. Pain medication muscle relaxer. Brace for comfort. If any worsening symptoms return back to ED All discharge instructions reviewed with patient and/or family. Voiced understanding. Scripts Cyclobenzaprine HCl (Cyclobenzaprine HCl) 10 Mg Tablet 10 MG PO TID, #15 TAB Prov: LUZ MARIA PALMER 11/12/22 Naproxen (Naproxen) 500 Mg Tablet 500 MG PO Q12H for 10 Days, #20 TAB Prov: LUZ MARIA PALMER 11/12/22 LUZ MARIA PALMER Nov 12, 2022 13:48
--- NOTE | 2022-11-12 15:19 | Diagnostic Imaging Report ---
PROCEDURE: CT thoracic and lumbar spine without contrast. TECHNIQUE: Multiple contiguous axial images were obtained through the thoracic and lumbar spine without the use of intravenous contrast. Sagittal and coronal reformations were then performed. All CT scans use one or more of the following dose optimizing techniques: automated exposure control, MA and/or KvP adjustment based on patient size and exam type or iterative reconstruction. INDICATION: Back pain, fall. COMPARISON: 11/05/2013. FINDINGS: Alignment of the thoracolumbar spine is well maintained without significant anterolisthesis or retrolisthesis. Extensive scattered endplate degenerative changes and innumerable Schmorl's nodes are identified throughout the thoracolumbar spine. No definite evidence of an acute vertebral body compression deformity within the limits of the exam. Acute appearing nondisplaced fracturing involving the right L1 transverse process. No additional fracture or dislocation. No destructive osseous process. Scattered disc space height loss, particularly at L4/L5 and L5/S1 as well as within the mid to lower thoracic spine. Scattered facet joint degenerative changes. Disc bulges within the lower lumbar spine. There is at least mild central canal stenosis within the lower lumbar spine. Mild vascular calcifications. Calcified splenic and hepatic granuloma. Calcified mediastinal and hilar lymph nodes. Mild background emphysematous changes. No pneumothorax. IMPRESSION: 1. Acute nondisplaced fracturing of the right L1 transverse process. 2. Significant scattered degenerative changes, including significant endplate degenerative changes and innumerable Schmorl's nodes throughout the thoracolumbar spine. 3. Evidence of chronic granulomatous disease. Dictated by: Dictated on workstation # [id number]
[2022-11-12 15:33] VITALS: BP 169/111
[2022-11-12] MEDS ORDERED: CYCL10TA25 PO (15:36)
[2022-11-12] MEDS ORDERED: NAPR-915 PO (15:36)
== END 2022-11-12 15:46 | disposition home or self-care (01) ==
LOC: EDUNIT# 13:34 → ER 13:36
DX: S32.018A Other fracture of first lumbar vertebra, initial encounter for closed fracture (principal); F17.210 Nicotine dependence, cigarettes, uncomplicated; Z28.310 Unvaccinated for COVID-19; W01.190A Fall on same level from slipping, tripping and stumbling with subsequent striking against furniture, initial encounter; Y93.01 Activity, walking, marching and hiking
CPT/HCPCS: 72128; 72131

== ENCOUNTER 2023-02-05 15:45 | Inpatient (IN) | payer OTHER ==
[2023-02-05] VITALS (10 sets, daily range): BP systolic 144–178; BP diastolic 89–103
[~2023-02-05] VITALS: Ht 172 cm; Wt 73.6 kg
[~2023-02-05 15:45] MED LIST changes: +CYCL10TA25 PO; +NAPR-915 PO
--- NOTE | 2023-02-05 16:12 | ED Respiratory ---
General Stated Complaint: SOA/ FEVER/CHILLS Source: patient Exam Limitations: no limitations (VICTORIA GALDAMEZ APRN) History of Present Illness Date Seen by Provider: Feb 05, 2023 Time Seen by Provider: 15:47 Initial Comments 63-year-old male presents the ER with shortness of breath that started last week. Reports that he was seen at the [facility] clinic and had an EKG and lab work done. He reports he had a negative COVID test. He reports that he was told that his lab work was abnormal and his blood pressure was high and he was told to go to the hospital. States that he went to [facility] and that they told him that his labs were all within normal limits at that time. They did start him on lisinopril. He reports continued shortness of breath, and chest tightness starting yesterday morning. Reports the chest tightness has been constant since then. He reports subjective fevers and chills and cough. Denies abdominal pain, nausea, vomiting, diarrhea. Reports history of COPD, states he is trying to quit smoking. Has history of meth abuse, also states he is trying to quit. (VICTORIA GALDAMEZ APRN) Allergies and Home Medications Allergies Coded Allergies: No Known Drug Allergies (Unverified , 02/12/12) Patient Home Medication List Home Medication List Reviewed: Yes (VICTORIA GALDAMEZ APRN) Albuterol Sulfate (Proventil Hfa) 6.7 Gm Hfa.aer.ad, 2 PUFF INH Q6H PRN for SHORTNESS OF BREATH, (Reported) Entered as Reported by: FANTASMA MONTES on 08/25/22 1141 Last Action: Reviewed Aspirin (Aspirin EC) 81 Mg Tablet.dr, 81 MG PO DAILY Prescribed by: Mohan Leahy on 02/06/23 1336 Benzonatate (Tessalon Perles) 100 Mg Capsule, 100 MG PO TID PRN for cough Prescribed by: Mohan Leahy on 02/06/23 1336 Lisinopril (Lisinopril) 10 Mg Tablet, 10 MG PO DAILY, (Reported) Entered as Reported by: BENITA HARO on 02/06/23 1339 Last Action: Reviewed Metoprolol Succinate (Metoprolol Succinate) 50 Mg Tab.er.24h, 50 MG PO DAILY Prescribed by: Mohan Leahy on 02/06/23 1336 Discontinued Medications Acetaminophen (Tylenol Extra Strength) 500 Mg Tablet, 1,000 MG PO Q8H PRN for PAIN-MILD (1-4), (Reported) Discontinued Reason: No Longer Taking Entered as Reported by: FANTASMA MONTES on 08/25/22 1143 Last Action: Discontinued Albuterol Sulfate (Albuterol Sulfate) 2.5 Mg/3 Ml (0.083 %) Vial.neb, 2.5 MG INH Q6H PRN for SHORTNESS OF BREATH, (Reported) Discontinued Reason: No Longer Taking Entered as Reported by: FANTASMA MONTES on 08/25/22 1142 Last Action: Discontinued Budesonide/Formoterol Fumarate (Symbicort 80-4.5 Mcg Inhaler) 80 Mcg-4.5 Mcg/Actuation Hfa.aer.ad, 2 PUFF IH BID, (Reported) Discontinued Reason: No Longer Taking Entered as Reported by: FANTASMA MONTES on 08/25/22 1149 Last Action: Discontinued Cyclobenzaprine HCl (Cyclobenzaprine HCl) 10 Mg Tablet, 10 MG PO TID Discontinued Reason: No Longer Taking Prescribed by: EMMETT CARDOZO on 11/12/22 1536 Last Action: Discontinued Naproxen (Naproxen) 500 Mg Tablet, 500 MG PO Q12H Discontinued Reason: No Longer Taking Prescribed by: EMMETT CARDOZO on 11/12/22 153 Last Action: Discontinued Omeprazole (Omeprazole) 40 Mg Capsule.dr, 40 MG PO DAILY Discontinued Reason: No Longer Taking Prescribed by: GEOVANNY RECINOS on 08/25/22 0937 Last Action: Discontinued Review of Systems Review of Systems Constitutional: see HPI (VICTORIA GALDAMEZ APRN) Past Uwvtltd-Ugzytk-Uhhrod Hx Immunizations Up To Date Tetanus Booster (TDap): Unknown (VICTORIA GALDAMEZ APRN) Past Medical History Surgery/Hospitalization HX: copd, htn Surgeries: Yes Appendectomy Respiratory: Yes COPD Cardiac: Yes Hypertension Reproductive Disorders: No Sexually Transmitted Disease: No HIV/AIDS: No Genitourinary: No Gastrointestinal: No Musculoskeletal: No Endocrine: No HEENT: No Cancer: No Psychosocial: No Integumentary: No Blood Disorders: No (VICTORIA GALDAMEZ APRN) Family Medical History SOCIAL HISTORY: -SMOKES 1 PPD -ETOH--"OCCASIONAL" USE -DRUGS--DENIES USE, BUT UDS + FOR AMPHETAMINES/METHAMPHETAMINES, THC, BENZODIAZEPINES ON 04/22/22 (VICTORIA GALDAMEZ APRN) Physical Exam Vital Signs - First Documented 02/05/23 16:09 Temp 37.1 Pulse 107 Resp 22 B/P (MAP) 118/95 (103) Pulse Ox 97 O2 Delivery Nasal Cannula (JUDIT CLEARY MD) Capillary Refill : (VICTORIA GALDAMEZ APRN) Height: 5'8" Weight: 150lbs. oz. 68.352676ef; 23.00 BMI Method:Stated General Appearance: WD/WN, mild distress Neck: supple, normal inspection Respiratory: chest non-tender, lungs clear, normal breath sounds, respiratory distress, other (Tachypneic) Cardiovascular: regular rate, rhythm Extremities: normal range of motion, normal inspection Neurologic/Psychiatric: alert, normal mood/affect Skin: normal color, warm/dry (VICTORIA GALDAMEZ APRN) Focused Exam Lactate Level 02/05/23 16:00: Lactic Acid Level 1.63 (JUDIT CLEARY MD) Lactic Acid Level Laboratory Tests Test 02/05/23 16:00 Lactic Acid Level 1.63 MMOL/L (0.50-2.00) (JUDIT CLEARY MD) Progress/Results/Core Measures Suspected Sepsis SIRS Temperature: Pulse: Respiratory Rate: Laboratory Tests 02/05/23 16:00: White Blood Count 8.5 Blood Pressure / Mean: 02/05/23 16:00: Lactic Acid Level 1.63 Laboratory Tests 02/05/23 16:00: Creatinine 1.10, INR Comment 1.0, Platelet Count 262, Total Bilirubin 0.1 (VICTORIA GALDAMEZ APRN) Results/Orders Lab Results Laboratory Tests Test 02/05/23 16:00 Range/Units White Blood Count 8.5 4.3-11.0 10^3/uL Red Blood Count 6.12 H 4.30-5.52 10^6/uL Hemoglobin 18.9 H 13.3-17.7 g/dL Hematocrit 55 H 40-54 % Mean Corpuscular Volume 89 80-99 fL Mean Corpuscular Hemoglobin 31 25-34 pg Mean Corpuscular Hemoglobin Concent 35 32-36 g/dL Red Cell Distribution Width 12.8 10.0-14.5 % Platelet Count 262 130-400 10^3/uL Mean Platelet Volume 9.6 9.0-12.2 fL Immature Granulocyte % (Auto) 1 % Neutrophils (%) (Auto) 65 42-75 % Lymphocytes (%) (Auto) 18 12-44 % Monocytes (%) (Auto) 13 H 0-12 % Eosinophils (%) (Auto) 3 0-10 % Basophils (%) (Auto) 1 0-10 % Neutrophils # (Auto) 5.5 1.8-7.8 10^3/uL Lymphocytes # (Auto) 1.6 1.0-4.0 10^3/uL Monocytes # (Auto) 1.1 H 0.0-1.0 10^3/uL Eosinophils # (Auto) 0.2 0.0-0.3 10^3/uL Basophils # (Auto) 0.1 0.0-0.1 10^3/uL Immature Granulocyte # (Auto) 0.1 0.0-0.1 10^3/uL Prothrombin Time 13.0 12.2-14.7 SEC INR Comment 1.0 0.8-1.4 Activated Partial Thromboplast Time 30 24-35 SEC D-Dimer 1.36 H 0.00-0.49 UG/ML Sodium Level 132 L 135-145 MMOL/L Potassium Level 4.5 3.6-5.0 MMOL/L Chloride Level 99 98-107 MMOL/L Carbon Dioxide Level 20 L 21-32 MMOL/L Anion Gap 13 5-14 MMOL/L Blood Urea Nitrogen 26 H 7-18 MG/DL Creatinine 1.10 0.60-1.30 MG/DL Estimat Glomerular Filtration Rate 76 BUN/Creatinine Ratio 24 Glucose Level 145 H 70-105 MG/DL Lactic Acid Level 1.63 0.50-2.00 MMOL/L Calcium Level 9.0 8.5-10.1 MG/DL Corrected Calcium 9.1 8.5-10.1 MG/DL Magnesium Level 2.2 1.6-2.4 MG/DL Total Bilirubin 0.1 0.1-1.0 MG/DL Aspartate Amino Transf (AST/SGOT) 67 H 5-34 U/L Alanine Aminotransferase (ALT/SGPT) 104 H 0-55 U/L Alkaline Phosphatase 118 40-136 U/L Troponin I 0.037 H <0.028 NG/ML B-Type Natriuretic Peptide 18.2 <100.0 PG/ML Total Protein 7.7 6.4-8.2 GM/DL Albumin 3.9 3.2-4.5 GM/DL Influenza Type A (RT-PCR) Not Detected Not Detecte Influenza Type B (RT-PCR) Not Detected Not Detecte SARS-CoV-2 RNA (RT-PCR) Detected H Not Detecte (JUDIT CLEARY MD) Micro Results Microbiology 02/05/23 Blood Culture - Preliminary, Resulted 02/05/23 Blood Culture - Preliminary, Resulted (JUDIT CLEARY MD) Vital Signs/I&O 02/05/23 02/05/23 16:09 19:21 Temp 37.1 Pulse 107 87 Resp 22 20 B/P (MAP) 118/95 (103) 133/83 Pulse Ox 97 98 O2 Delivery Nasal Cannula Nasal Cannula (JUDIT CLEARY MD) Vital Signs/I&O Capillary Refill : (VICTORIA GALDAMEZ APRN) Progress Note : Progress Note Patient seen and evaluated, lying in bed, mild distress, tachypneic. Based on exam and symptoms, septic work-up initiated including CBC, CMP, coags, troponin, D-dimer, BNP, magnesium, sputum culture, lactic acid, blood cultures x2, chest x-ray, COVID and flu swab, EKG. IV fluids ordered. 1648 Labs and chest x-ray reviewed. CBC shows elevated RBC 6.12, elevated hemoglobin 18.9, elevated hematocrit 55. CMP shows decreased sodium 132, slightly decreased CO2 20, BUN slightly elevated 26, creatinine 1.10 and GFR 76, AST slightly elevated 67, ALT elevated 104. Magnesium normal. Lactic acid normal. Troponin elevated 0.037. BNP normal. Coags normal. D-dimer elevated 1.36. Patient positive for COVID. Chest x-ray shows no acute cardiopulmonary process. Does show emphysematous lung disease and calcified granuloma in the right midlung. CT angio chest ordered to rule out PE due to elevated D-dimer. Second liter of IV fluids ordered due to signs of dehydration on blood work as evidenced by elevated hemoglobin and hematocrit and elevated BUN. 1802 CT reviewed. Negative for PE. There are vascular calcifications of the aorta and coronary vessels without aneurysm. It shows again mild emphysematous changes and calcified granuloma in the right middle lobe. Degenerative changes of the spine also noted. I called and spoke with Dr. Bui, cardiology, regarding patient's elevated troponin. Recommends admission with aspirin 324 mg, Plavix 150 mg, and metoprolol XR 50 mg now, and 81 mg aspirin daily, 75 mg Plavix daily, and 50 mg of metoprolol XR daily. Called spoke with Dr. Dolan, [facility] hospitalist, she agrees to admit patient. She would like patient to be admitted as an inpatient to the cardiac stepdown unit for non-STEMI and COVID. She will place admission orders. (VICTORIA GALDAMEZ APRN) ECG Initial ECG Impression Date: Feb 05, 2023 Initial ECG Impression Time: 16:05 Initial ECG Rate: 105 Initial ECG Rhythm: S.Tach Initial ECG Intervals: Normal Initial ECG Impression: Nonspecific Changes Initial ECG Comparisson: Unchanged Comment Minimal ST depression in V1 and V2, no evidence of ischemic changes, no STEMI. Dr. Espinoza, ER physician, also evaluated EKG. (VICTORIA GALDAMEZ APRN) Diagnostic Imaging Diagonstic Imaging: Xray Plain Films/CT/US/NM/MRI: chest Comments [facility], [place] NAME: VIOLETA SALGUERO [facility] REC#: [id number] PT STATUS: REG ER : 1960 PHYSICIAN: VICTORIA GALDAMEZ APRN ADMIT DATE: 02/05/23/ER Signed Date of Exam:02/05/23 CHEST 1 VIEW, AP/PA ONLY INDICATION: Shortness of breath, fever, chills since last week. TECHNIQUE: Single view chest at 4:21 PM. CORRELATION STUDY: 08/24/2022. FINDINGS: The heart size, mediastinal configuration, and pulmonary vascularity are within normal limits. Lungs are clear but with emphysematous lung disease, particularly at the lung apices. Calcified granuloma of the lateral right mid lung. No effusion. IMPRESSION: Negative appearing single view chest. Dictated by: Dictated on workstation # [id number] Dict: 02/05/23 1625 Trans: 02/05/23 1632 FISH [id number] Interpreted by: STEVIE SANTILLAN DO Electronically signed by: STEVIE SANTILLAN DO 02/05/23 163 Diagonstic Imaging: CT Plain Films/CT/US/NM/MRI: chest Comments [facility] [place] NAME: VIOLETA SALGUERO [facility] REC#: [id number] PT STATUS: REG ER : 1960 PHYSICIAN: VICTORIA GALDAMEZ APRN ADMIT DATE: 02/05/23/ER Signed Date of Exam:02/05/23 CT ANGIO CHEST W (R/O PE) EXAMINATION: CT angiography of the chest. TECHNIQUE: Contrast enhanced thin section helical images were obtained through the chest with intravenous contrast timed for the optimal opacification of the arterial structures per CTA protocol. Post-processing, reconstructions and interpretation of angiographic images of the vessels was performed. 3D MIP reconstructions were performed and reviewed. All CT scans use one or more of the following dose optimizing techniques: automated exposure control, MA and/or KvP adjustment based on a patient size and exam type, or iterative reconstruction. HISTORY: Covid positive, shortness of breath, and fever. COMPARISON: None available. FINDINGS: Vascular: There are no filling defects within the pulmonary arteries. There are vascular calcifications of the aorta and coronary vessels without aneurysm. Thyroid: The thyroid is normal. Mediastinum: Heart size is normal without significant pericardial effusion. No suspicious lymphadenopathy. Lungs and airways: There are mild background emphysematous changes, greatest within the lung apices. No consolidation, pleural effusion, or pneumothorax. There is a calcified granuloma within the right middle lobe. The airways are normal. Upper abdomen: The subphrenic structures are normal. Musculoskeletal: Degenerative changes of the spine without suspicious osseous lesion or compression fracture. IMPRESSION: No findings of pulmonary embolus or other acute abnormality in the chest. Dictated by: Dictated on workstation # [id number] Dict: 02/05/231732 Trans: 02/05/23 174 FISH [id number] Interpreted by: MICHELLE NEWTON DO Electronically signed by: MICHELLE NEWTON DO 02/05/231742 (VICTORIA GALDAMEZ APRN) Departure Communication (Admissions) Time/Spoke to Admitting Phy: 18:02 Dr. Acevedo, [facility] hospitalist, see progress note. Time/Spoke to Consulting Phy: 17:52 Dr. Bui, cardiology, see progress note. (VICTORIA GALDAMEZ APRN) Impression Primary Impression: NSTEMI (non-ST elevated myocardial infarction) Additional Impression: COVID Disposition: 09 ADMITTED INPATIENT Condition: Stable Admissions Decision to Admit Reason: Admit from ER (General) Decision to Admit/Date: Feb 05, 2023 Time/Decision to Admit Time: 17:52 (VICTORIA GALDAMEZ APRN) Departure-Patient Inst. Referrals: [facility] [place] (PCP/Family) Primary Care Physician Scripts Benzonatate (TESSALON PERLES) 100 Mg Capsule 100 MG PO TID PRN for cough for 7 Days, #21 CAP Prov: MOHAN LEAHY MD, RESIDENT 02/06/23 Aspirin (Aspirin EC) 81 Mg Tablet.dr 81 MG PO DAILY for 30 Days, #30 TAB Prov: MOHAN LEAHY MD, RESIDENT 02/06/23 Metoprolol Succinate (Metoprolol Succinate) 50 Mg Tab.er.24h 50 MG PO DAILY for 30 Days, #30 TAB Prov: MOHAN LEAHY MD, RESIDENT 02/06/23 ATTENDING PHYSICIAN NOTE: I was physically present as attending physician in the emergency department during the care of this patient, but I was not directly involved in the decision making or delivery of care for this patient. (JUDIT CLEARY MD) VICTORIA GALDAMEZ APRN Feb 05, 2023 16:12 JUDIT CLEARY MD Feb 08, 2023 16:48
[2023-02-05] MEDS ORDERED: NS IV 1000 ML 1,000 ML IV SCH ×2 (16:15→17:00)
[2023-02-05 16:16] LABS: BASOPHILS # (AUTO) 0.1 10^3/uL (0.0-0.1); BASOPHILS % (AUTO) 1 % (0-10); EOSINOPHILS # (AUTO) 0.2 10^3/uL (0.0-0.3); EOSINOPHILS % (AUTO) 3 % (0-10); HEMATOCRIT 55 % (40-54); HEMOGLOBIN 18.9 g/dL (13.3-17.7); LYMPHOCYTES # (AUTO) 1.6 10^3/uL (1.0-4.0); LYMPHOCYTES % (AUTO) 18 % (12-44); MEAN CORPUSCULAR HEMOGLOBIN 31 pg (25-34); MEAN CORPUSCULAR HGB CONC 35 g/dL (32-36); MEAN CORPUSCULAR VOLUME 89 fL (80-99); MEAN PLATELET VOLUME 9.6 fL (9.0-12.2); MONOCYTES # (AUTO) 1.1 10^3/uL (0.0-1.0); MONOCYTES % (AUTO) 13 % (0-12); NEUTROPHILS # (AUTO) 5.5 10^3/uL (1.8-7.8); NEUTROPHILS % (AUTO) 65 % (42-75); PLATELET COUNT 262 10^3/uL (130-400); WHITE BLOOD COUNT 8.5 10^3/uL (4.3-11.0)
[2023-02-05 16:27] LABS: ALBUMIN 3.9 GM/DL (3.2-4.5); POTASSIUM 4.5 MMOL/L (3.6-5.0)
--- NOTE | 2023-02-05 16:29 | Diagnostic Imaging Report ---
INDICATION: Shortness of breath, fever, chills since last week. TECHNIQUE: Single view chest at 4:21 PM. CORRELATION STUDY: 08/24/2022. FINDINGS: The heart size, mediastinal configuration, and pulmonary vascularity are within normal limits. Lungs are clear but with emphysematous lung disease, particularly at the lung apices. Calcified granuloma of the lateral right mid lung. No effusion. IMPRESSION: Negative appearing single view chest. Dictated by: Dictated on workstation # [id number]
[2023-02-05 16:30] LABS: TOTAL PROTEIN 7.7 GM/DL (6.4-8.2)
[2023-02-05 16:31] LABS: BILIRUBIN,TOTAL 0.1 MG/DL (0.1-1.0)
[2023-02-05 16:33] LABS: CREATININE SERUM 1.1 MG/DL (0.60-1.30)
[2023-02-05 16:36] LABS: MAGNESIUM 2.2 MG/DL (1.6-2.4)
[2023-02-05 16:42] LABS: FIBRIN DEGRADATION PRODUCTS 1.36 UG/ML (0.00-0.49)
[2023-02-05] MEDS ORDERED: NS 100 ML (IVPB) BAG IV ONE (17:30)
[2023-02-05] MEDS ORDERED: IOHEXOL 350 MG/ML 100 ML (OMNIPAQUE 350) VIAL IV ONE (17:30)
--- NOTE | 2023-02-05 17:41 | Diagnostic Imaging Report ---
EXAMINATION: CT angiography of the chest. TECHNIQUE: Contrast enhanced thin section helical images were obtained through the chest with intravenous contrast timed for the optimal opacification of the arterial structures per CTA protocol. Post-processing, reconstructions and interpretation of angiographic images of the vessels was performed. 3D MIP reconstructions were performed and reviewed. All CT scans use one or more of the following dose optimizing techniques: automated exposure control, MA and/or KvP adjustment based on a patient size and exam type, or iterative reconstruction. HISTORY: Covid positive, shortness of breath, and fever. COMPARISON: None available. FINDINGS: Vascular: There are no filling defects within the pulmonary arteries. There are vascular calcifications of the aorta and coronary vessels without aneurysm. Thyroid: The thyroid is normal. Mediastinum: Heart size is normal without significant pericardial effusion. No suspicious lymphadenopathy. Lungs and airways: There are mild background emphysematous changes, greatest within the lung apices. No consolidation, pleural effusion, or pneumothorax. There is a calcified granuloma within the right middle lobe. The airways are normal. Upper abdomen: The subphrenic structures are normal. Musculoskeletal: Degenerative changes of the spine without suspicious osseous lesion or compression fracture. IMPRESSION: No findings of pulmonary embolus or other acute abnormality in the chest. Dictated by: Dictated on workstation # [id number]
[2023-02-05] MEDS ORDERED: CLOPIDOGREL 75 MG TABLET PO ONE (18:00)
[2023-02-05] MEDS ORDERED: ASPIRIN 81 MG CHEWABLE TABLET PO ONE (18:00)
[2023-02-05] MEDS ORDERED: hydrALAZINE INJECTION 20 MG/ML VIAL IV PRN (20:00)
[2023-02-05] MEDS ORDERED: LACTULOSE SYRUP 10GM/15ML 30ML UDC PO PRN (20:00)
[2023-02-05] MEDS ORDERED: cloNIDine 0.1 MG TABLET PO PRN (20:00)
[2023-02-05] MEDS ORDERED: BISACODYL 10 MG SUPPOSITORY PR PRN (20:00)
[2023-02-05] MEDS ORDERED: ACETAMINOPHEN 325 MG TABLET PO PRN (20:00)
[2023-02-05] MEDS ORDERED: diphenhydrAMINE INJ 50 MG/ML VIAL IVP PRN (20:00)
[2023-02-05] MEDS ORDERED: MILK OF MAGNESIA 400 MG/5 ML 30 ML UDC PO PRN (20:00)
[2023-02-05] MEDS ORDERED: CALCIUM CARBONATE 500 MG CHEW TABLET PO PRN (20:00)
[2023-02-05] MEDS ORDERED: diphenhydrAMINE 25 MG TABLET PO PRN (20:00)
[2023-02-05] MEDS ORDERED: NITROGLYCERIN 0.4 MG SL TABLETS BTL 25'S SL PRN (20:00)
[2023-02-05] MEDS ORDERED: ANTACID SUSPENSION 30 ML UDC PO PRN (20:00)
[2023-02-05] MEDS ORDERED: oxyCODONE IMMEDIATE RELEASE 5 MG TABLET PO PRN (20:00)
[2023-02-05] MEDS ORDERED: ONDANSETRON INJECTION 4 MG/2 ML (SDV) IV PRN (20:00)
[2023-02-05] MEDS ORDERED: LORazepam 0.5 MG TABLET PO PRN (20:00)
[2023-02-05] MEDS ORDERED: PATIENT MAY USE OWN MEDS, ALL PO SCH (20:00)
[2023-02-05] MEDS ORDERED: ONDANSETRON 4 MG ORAL DISSOLVE TABLET PO PRN (20:00)
[2023-02-05] MEDS ORDERED: morphine INJ 4 MG/ML 1 ML (VIAL/SYRINGE) IV PRN (20:00)
[2023-02-05] MEDS ORDERED: MELATONIN 3 MG TABLET PO PRN (20:00)
[2023-02-05] MEDS ORDERED: RT-ALBUTEROL HFA 8.5 GM INHALER IH PRN (20:15)
[2023-02-05] MEDS: SENNOSIDES 8.6 MG TABLET PO SCH (21:20)
[2023-02-05] MEDS: DOCUSATE SODIUM 100 MG CAPSULE PO SCH (21:20)
[2023-02-05] MEDS: NS IV 1000 ML 1,000 ML IV SCH (21:31)
[2023-02-05] MEDS: ENOXAPARIN 80 MG/0.8 ML SYRINGE SC SCH (21:31)
[2023-02-06] VITALS: BP 151/98
[2023-02-06 04:00] VITALS: BP 169/99
[2023-02-06 04:59] LABS: BASOPHILS % (AUTO) 1 % (0-10); EOSINOPHILS # (AUTO) 0.4 10^3/uL (0.0-0.3); EOSINOPHILS % (AUTO) 5 % (0-10); HEMATOCRIT 49 % (40-54); HEMOGLOBIN 16.5 g/dL (13.3-17.7); LYMPHOCYTES # (AUTO) 1.5 10^3/uL (1.0-4.0); LYMPHOCYTES % (AUTO) 18 % (12-44); MEAN CORPUSCULAR HEMOGLOBIN 31 pg (25-34); MEAN CORPUSCULAR HGB CONC 34 g/dL (32-36); MEAN CORPUSCULAR VOLUME 90 fL (80-99); MEAN PLATELET VOLUME 9.5 fL (9.0-12.2); MONOCYTES # (AUTO) 0.9 10^3/uL (0.0-1.0); MONOCYTES % (AUTO) 11 % (0-12); NEUTROPHILS # (AUTO) 5.1 10^3/uL (1.8-7.8); NEUTROPHILS % (AUTO) 64 % (42-75); PLATELET COUNT 185 10^3/uL (130-400)
[2023-02-06 05:31] LABS: ALBUMIN 3.4 GM/DL (3.2-4.5); POTASSIUM 4.4 MMOL/L (3.6-5.0)
[2023-02-06 05:32] LABS: CALCIUM 8.1 MG/DL (8.5-10.1)
[2023-02-06 05:34] LABS: TOTAL PROTEIN 6.5 GM/DL (6.4-8.2)
[2023-02-06 05:35] LABS: BILIRUBIN,TOTAL 0.6 MG/DL (0.1-1.0)
[2023-02-06 05:37] LABS: CREATININE SERUM 0.8 MG/DL (0.60-1.30)
[2023-02-06] MEDS ORDERED: FLU QUADRIvalent (6 months+) 60 mcg/0.5 ml 2023-2024 (FLUARIX) IM ONE (06:45)
[2023-02-06 07:27] VITALS: BP 171/85
[2023-02-06] MEDS: DOCUSATE SODIUM 100 MG CAPSULE PO SCH (08:36)
[2023-02-06] MEDS: ENOXAPARIN 80 MG/0.8 ML SYRINGE SC SCH (08:36)
[2023-02-06] MEDS: SENNOSIDES 8.6 MG TABLET PO SCH (08:36)
--- NOTE | 2023-02-06 08:47 | History & Physical ---
HPI History of Present Illness: CC: Chest pain Patient is a 63-year-old male with a past medical history of hypertension, methamphetamine use, cannabis use, COPD who presented to the ED with chest pain. He states that he was having shortness of breath that had started last week at which point he presented to the [facility] clinic where COVID and flu testing was negative. He however continue to experience shortness of breath and cough productive of yellowish sputum. He began having chest tightness that started yesterday that was persistent across his chest bilaterally. Thus he presented to the ED for further evaluation. In the ED, he was found to have ST depressions in the V1 and V2 as well as an elevated troponin. CTA chest was negative and chest x-ray was negative. COVID testing was positive. Due to concerns for NSTEMI, he was ultimately admitted for further management. He does note that he has been using meth and cannabis due to increase in stressors at home. He states he last used meth 4 days ago and does feel like he is currently withdrawing. This morning he states that his chest pain has resolved and otherwise feels well. He is having some abdominal pain but notes this is secondary to the cough. He otherwise is feeling very hungry as he has been n.p.o. in case he has to have a procedure done. He was noting that he is feeling anxious and is h aving difficulty sleeping because of the withdrawal and was wanting something for this. He otherwise states no concerns this morning. Source: patient Date seen by provider: Feb 06, 2023 Time Seen by Provider: 07:50 Attending Physician [facility] PCP Admitting Physician: Torie Acevedo DO Attending Physician: Mary Montgomery MD Consult Date of Admission Feb 05, 2023 at 19:21 Home Medications Home Medications Reviewed patient Home Medication Reconciliation performed by pharmacy medication reconciliations property maintenance technician and/or nursing. Patients Allergies have been reviewed. Allergies Coded Allergies: No Known Drug Allergies (Unverified , 02/12/12) [id number]-[id number]-[id number] Hx Immunizations Up To Date Tetanus Booster (TDap): Unknown Influenza Vaccine Up-to-Date: No; Not Current Family Medical History Other Significan Family Hx: SOCIAL HISTORY: -SMOKES 1 PPD -ETOH--"OCCASIONAL" USE -DRUGS--DENIES USE, BUT UDS + FOR AMPHETAMINES/METHAMPHETAMINES, THC, BENZODIAZEPINES ON 04/22/22 Review of Systems ([facility]) Constitutional: chills; No dizziness, No fever; weakness EENTM: No no symptoms reported Respiratory: cough, phlegm, short of breath Cardiovascular: No chest pain, No edema, No palpitations Gastrointestinal: abdominal pain; No constipation, No diarrhea, No nausea, No vomiting Genitourinary: No dysuria Musculoskeletal: No no symptoms reported Skin: No no symptoms reported Psychiatric/Neurological: Anxiety Reviewed Test Results Reviewed Test Results Lab Laboratory Tests 02/05/23 16:00: White Blood Count 8.5, Red Blood Count 6.12H, Hemoglobin 18.9H, Hematocrit 55H, Mean Corpuscular Volume 89, Mean Corpuscular Hemoglobin 31, Mean Corpuscular Hemoglobin Concent 35, Red Cell Distribution Width 12.8, Platelet Count 262, Mean Platelet Volume 9.6, Immature Granulocyte % (Auto) 1, Neutrophils (%) (Auto) 65, Lymphocytes (%) (Auto) 18, Monocytes (%) (Auto) 13H, Eosinophils (%) (Auto) 3, Basophils (%) (Auto) 1, Neutrophils # (Auto) 5.5, Lymphocytes # (Auto) 1.6, Monocytes # (Auto) 1.1H, Eosinophils # (Auto) 0.2, Basophils # (Auto) 0.1, Immature Granulocyte # (Auto) 0.1, Prothrombin Time 13.0, INR Comment 1.0, Activated Partial Thromboplast Time 30, D-Dimer 1.36H, Sodium Level 132L, Potassium Level 4.5, Chloride Level 99, Carbon Dioxide Level 20L, Anion Gap 13, Blood Urea Nitrogen 26H, Creatinine 1.10, Estimat Glomerular Filtration Rate 76, BUN/Creatinine Ratio 24, Glucose Level 145H, Lactic Acid Level 1.63, Calcium Level 9.0, Corrected Calcium 9.1, Magnesium Level 2.2, Total Bilirubin 0.1, Aspartate Amino Transf (AST/SGOT) 67H, Alanine Aminotransferase (ALT/SGPT) 104H, Alkaline Phosphatase 118, Troponin I 0.037H, B-Type Natriuretic Peptide 18.2, Total Protein 7.7, Albumin 3.9, Influenza Type A (RT-PCR) Not Detected, Influenza Type B (RT-PCR) Not Detected, SARS-CoV-2 RNA (RT-PCR) DetectedH 02/06/23 04:14: White Blood Count 8.0, Red Blood Count 5.38, Hemoglobin 16.5, Hematocrit 49, Mean Corpuscular Volume 90, Mean Corpuscular Hemoglobin 31, Mean Corpuscular Hemoglobin Concent 34, Red Cell Distribution Width 13.0, Platelet Count 185, Mean Platelet Volume 9.5, Immature Granulocyte % (Auto) 1, Neutrophils (%) (Auto) 64, Lymphocytes (%) (Auto) 18, Monocytes (%) (Auto) 11, Eosinophils (%) (Auto) 5, Basophils (%) (Auto) 1, Neutrophils # (Auto) 5.1, Lymphocytes # (Auto) 1.5, Monocytes # (Auto) 0.9, Eosinophils # (Auto) 0.4H, Basophils # (Auto) 0.0, Immature Granulocyte # (Auto) 0.0, Sodium Level 134L, Potassium Level 4.4, Chloride Level 105, Carbon Dioxide Level 20L, Anion Gap 9, Blood Urea Nitrogen 20H, Creatinine 0.80, Estimat Glomerular Filtration Rate 101, BUN/Creatinine Ratio 25, Glucose Level 94, Calcium Level 8.1L, Corrected Calcium 8.6, Total Bilirubin 0.6, Aspartate Amino Transf (AST/SGOT) 60H, Alanine Aminotransferase (ALT/SGPT) 84H, Alkaline Phosphatase 98, Troponin I 0.033H, Total Protein 6.5, Albumin 3.4, Triglycerides Level 88, Cholesterol Level 147, LDL Cholesterol Dire ct 113, VLDL Cholesterol 18, HDL Cholesterol 33L Radiology Chest x-ray (02/05/2023): IMPRESSION: Negative appearing single view chest. CTA chest (02/05/2023): IMPRESSION: No findings of pulmonary embolus or other acute abnormality in the chest. Physical Exam-([facility]) Physical Exam Vital Signs VS - Last 72 Hours, by Label 02/05/23 02/05/23 02/05/23 02/05/23 16:09 19:21 19:23 19:45 Temp 37.1 Pulse 107 87 75 73 Resp 22 20 B/P (MAP) 118/95 (103) 133/83 144/95 (114) Pulse Ox 97 98 O2 Delivery Nasal Cannula Nasal Cannula Nasal Cannula O2 Flow Rate 2.00 02/05/23 02/05/23 02/05/23 02/05/23 19:52 19:58 20:00 20:07 Temp 36.6 Pulse 68 67 71 Resp 30 23 30 B/P (MAP) 154/97 (113) 148/103 (118) 144/95 (111) Pulse Ox 96 97 95 O2 Delivery Nasal Cannula Nasal Cannula Nasal Cannula Nasal Cannula O2 Flow Rate 2.00 2.00 2.00 2.00 02/05/23 02/05/23 02/05/23 02/05/23 20:15 20:30 20:45 21:00 Pulse 66 65 62 61 Resp 27 28 27 B/P (MAP) 169/97 (129) 173/89 (124) 178/97 (131) 164/94 (119) Pulse Ox 98 96 98 99 O2 Delivery Nasal Cannula Nasal Cannula Nasal Cannula Nasal Cannula O2 Flow Rate 2.00 2.00 2.00 2.00 02/05/23 02/05/23 02/05/23 02/06/23 21:15 21:30 23:40 00:00 Temp 36.4 Pulse 71 71 67 Resp 34 23 24 B/P (MAP) 168/93 (130) 152/92 (114) 151/98 (121) Pulse Ox 98 96 95 O2 Delivery Nasal Cannula Nasal Cannula Nasal Cannula O2 Flow Rate 2.00 2.00 2.00 02/06/23 02/06/23 02/06/23 02/06/23 01:00 04:00 07:22 07:27 Temp 36.4 Pulse 69 65 71 72 Resp 32 22 B/P (MAP) 169/99 (125) 171/85 (113) Pulse Ox 92 97 O2 Delivery Nasal Cannula Room Air O2 Flow Rate 2.00 02/06/23 07:32 Pulse Ox 98 O2 Delivery Room Air Capillary Refill : Less Than 3 Seconds General Appearance: no apparent distress HEENT: normal ENT inspection Neck: full range of motion, supple, normal inspection Respiratory: chest non-tender, lungs clear, normal breath sounds, no re spiratory distress, no accessory muscle use Cardiovascular: regular rate, rhythm, no edema, no murmur Gastrointestinal: normal bowel sounds, non tender, soft Neurologic/Psychiatric: alert, oriented x 3 Skin: normal color, warm/dry Assessment/Plan Assessment/Plan Admission Dx NSTEMI, COVID Admission Status: Inpatient Order (span 2 midnights) Reason for Inpatient Admission: NSTEMI monitoring (1) NSTEMI (non-ST elevated myocardial infarction) Status: Acute Assessment & Plan: Noted to have ST depressions in V1 and V2 on EKG. Troponin was initially elevated however appears to be downtrending today to 0.033. Cardiology has been consulted and patient was started on metoprolol, Plavix and aspirin yesterday. CTA chest was otherwise negative. Plan: Continue monitoring on telemetry Continue trending troponins Continue metoprolol 50 mg daily, Plavix 75 mg daily, aspirin 81 mg daily Cardiology consulted, appreciate recommendations (2) COVID Status: Acute Assessment & Plan: Patient COVID-positive, initially requiring 2 needed liters nasal cannula. Is on room air this morning. Patient is out of treatment indications for Paxlovid. Srikanth: Continue supportive care with fluids and cough medications as needed (3) Elevated liver enzymes Status: Acute Assessment & Plan: Noted to have elevated AST and ALT on presentation. These appear to be downtrending this morning. They be secondary to COVID infection Plan: Continue tube trend with daily CMP (4) Methamphetamine use Status: Acute Assessment & Plan: Patient admits to recent methamphetamine use 4 days ago and does feel like he is withdrawing. Plan: We will add on Ativan as needed for anxiety Melatonin at night to help with sleep Continue monitoring withdrawal symptoms (5) COPD (chronic obstructive pulmonary disease) Status: Chronic Assessment & Plan: Restart home medications once med rec has been completed Encourage smoking cessation (6) HTN (hypertension) Status: Acute Assessment & Plan: Per patient, he was recently started on lisinopril for blood pressure management. Plan: Continue metoprolol as per above as this should help with patient's blood pressure We will restart lisinopril once med rec has been completed. (7) Hyponatremia Status: Acute Assessment & Plan: Patient noted to have hyponatremia of 132 on admission improving to 134. Likely secondary to dehydration. Plan: Monitor daily CMP MOHAN YEH MD, RESIDENT Feb 06, 2023 08:47
[2023-02-06] MEDS ORDERED: CLOPIDOGREL 75 MG TABLET PO SCH (09:00)
[2023-02-06] MEDS ORDERED: ASPIRIN enteric coated 81MG TABLET PO SCH (09:00)
[2023-02-06] MEDS ORDERED: LORazepam 1 MG TABLET PO PRN (10:15)
[2023-02-06] MEDS ORDERED: BENZONATATE 100 MG CAPSULE PO PRN (10:15)
[2023-02-06] MEDS: NS IV 1000 ML 1,000 ML IV SCH (11:18)
[2023-02-06 11:19] VITALS: BP 154/91
--- NOTE | 2023-02-06 12:27 | Consultation-Cardiology ---
HPI-Cardiology Cardiology Consultation: Date of Consultation 02/06/23 Time Seen by a Provider: 09:15 Date of Admission Attending Physician [place] Admitting Physician Admitting Physician: Torie Acevedo DO Attending Physician: Mary Montgomery MD Consulting Physician TOY JOHNSON MD, MA, FACP, FACC, [facility], CCDS Physician requesting consult: Dr Acevedo HPI: Chief Complaint: Reason for Card consult: Minimally elevated troponin 63 yo man who had been experiencing increasing cough productive of whitish to yellowish sputum for the last several days. Cough has been getting worse and incessant cough has caused chest soreness. He has also had gen malaise. He has felt more short of breath. He decided to come to the ER where he was diagnosed with Covid. Troponin was minimally elevated. He currently denies any cp or palp or syncope or swelling Review of Systems-Cardiology Review of Systems Constitutional: malaise, tiredness; No weight loss, No weight gain Eyes: No vision change Ears/Nose/Throat: No ear discharge, No nasal drainage, No recent hearing loss Respiratory: As described under HPI Cardiovascular: As described under HPI Gastrointestinal: As described under HPI Genitourinary: No dysuria, No hematuria, No urine frequency changes Musculoskeletal: No back pain, No joint pain Skin: No rash, No ulcerations Psychiatric/Neurological: No seizure, No focal weakness, No syncope Hematologic: No bleeding abnormalities RWG-Iieptw-Qwrfaj Hx Patient Social History Smoking Status: Current Everyday Smoker Immunizations Up To Date Tetanus Booster (TDap): Unknown Past Medical History PMH As described under Assessment. Family Medical History Family Medical History: He does not report fam h/o early CAD Allergies and Home Medications Allergies Coded Allergies: No Known Drug Allergies (Unverified , 02/12/12) Patient Home Medication List Home Medication List Reviewed: Yes Acetaminophen (Tylenol Extra Strength) 500 Mg Tablet, 1,000 MG PO Q8H PRN for PAIN-MILD (1-4), (Reported) Entered as Reported by: FANTASMA MONTES on 08/25/22 1143 Albuterol Sulfate (Proventil Hfa) 6.7 Gm Hfa.aer.ad, 2 PUFF INH Q6H PRN for SHORTNESS OF BREATH, (Reported) Entered as Reported by: FANTASMA MONTES on 08/25/22 1141 Albuterol Sulfate (Albuterol Sulfate) 2.5 Mg/3 Ml (0.083 %) Vial.neb, 2.5 MG INH Q6H PRN for SHORTNESS OF BREATH, (Reported) Entered as Reported by: FANTASMA MONTES on 08/25/22 1142 Budesonide/Formoterol Fumarate (Symbicort 80-4.5 Mcg Inhaler) 80 Mcg-4.5 Mcg/Actuation Hfa.aer.ad, 2 PUFF IH BID, (Reported) Entered as Reported by: FANTASMA MONTES on 08/25/22 1149 Cyclobenzaprine HCl (Cyclobenzaprine HCl) 10 Mg Tablet, 10 MG PO TID Prescribed by: EMMETT CARDOZO on 11/12/22 1536 Naproxen (Naproxen) 500 Mg Tablet, 500 MG PO Q12H Prescribed by: EMMETT CARDOZO on 11/12/22 1536 Omeprazole (Omeprazole) 40 Mg Capsule.dr, 40 MG PO DAILY Prescribed by: GEOVANNY RECINOS on 08/25/22 0937 Physical Exam-Cardiology Physical Exam Vital Signs/I&O 02/06/23 02/06/23 02/06/23 02/06/23 01:00 04:00 07:22 07:27 Temp 36.4 Pulse 69 65 71 72 Resp 32 22 B/P (MAP) 169/99 (125) 171/85 (113) Pulse Ox 92 97 O2 Delivery Nasal Cannula Room Air O2 Flow Rate 2.00 02/06/23 02/06/23 07:32 11:19 Temp 36.5 Pulse 71 Resp 22 B/P (MAP) 154/91 (112) Pulse Ox 98 97 O2 Delivery Room Air Room Air 02/05/23 23:59 Intake Total 2150 ml Output Total 200 ml Balance 1950 ml Capillary Refill : Less Than 3 Seconds Constitutional: AAO x 3, well-developed, well-nourished HEENT: EOMI, hearing is well preserved Neck: carotid pulses are 2 + bilaterally, with good upstrokes Respiratory: No accessory muscle use; chest expansion is symmetric, chest is bilaterally symmetric, other (good, bilateral air entry) Cardiovascular: S1 and S2, systolic murmur (soft KURTIS at card base) Gastrointestinal: No tender; soft; No guarding, No rebound; audible bowel sounds Extremities: No clubbing, No cyanosis, No significant edema Neurologic/Psychiatric: oriented x 3, other (moves all limbs equally) Skin: warm/dry; No cyanosis, No cool, No diaphoresis, No rash on exposed areas, No ulcerations on exposed areas Data Review Labs Laboratory Tests 02/05/23 16:00: White Blood Count 8.5, Red Blood Count 6.12H, Hemoglobin 18.9H, Hematocrit 55H, Mean Corpuscular Volume 89, Mean Corpuscular Hemoglobin 31, Mean Corpuscular Hemoglobin Concent 35, Red Cell Distribution Width 12.8, Platelet Count 262, Mean Platelet Volume 9.6, Immature Granulocyte % (Auto) 1, Neutrophils (%) (Auto) 65, Lymphocytes (%) (Auto) 18, Monocytes (%) (Auto) 13H, Eosinophils (%) (Auto) 3, Basophils (%) (Auto) 1, Neutrophils # (Auto) 5.5, Lymphocytes # (Auto) 1.6, Monocytes # (Auto) 1.1H, Eosinophils # (Auto) 0.2, Basophils # (Auto) 0.1, Immature Granulocyte # (Auto) 0.1, Prothrombin Time 13.0, INR Comment 1.0, Activated Partial Thromboplast Time 30, D-Dimer 1.36H, Sodium Level 132L, Potassium Level 4.5, Chloride Level 99, Carbon Dioxide Level 20L, Anion Gap 13, Blood Urea Nitrogen 26H, Creatinine 1.10, Estimat Glomerular Filtration Rate 76, BUN/Creatinine Ratio 24, Glucose Level 145H, Lactic Acid Level 1.63, Calcium Level 9.0, Corrected Calcium 9.1, Magnesium Level 2.2, Total Bilirubin 0.1, Aspartate Amino Transf (AST/SGOT) 67H, Alanine Aminotransferase (ALT/SGPT) 104H, Alkaline Phosphatase 118, Troponin I 0.037H, B-Type Natriuretic Peptide 18.2, To rosalina Protein 7.7, Albumin 3.9, Influenza Type A (RT-PCR) Not Detected, Influenza Type B (RT-PCR) Not Detected, SARS-CoV-2 RNA (RT-PCR) DetectedH 02/06/23 04:14: White Blood Count 8.0, Red Blood Count 5.38, Hemoglobin 16.5, Hematocrit 49, Mean Corpuscular Volume 90, Mean Corpuscular Hemoglobin 31, Mean Corpuscular Hemoglobin Concent 34, Red Cell Distribution Width 13.0, Platelet Count 185, Mean Platelet Volume 9.5, Immature Granulocyte % (Auto) 1, Neutrophils (%) (Auto) 64, Lymphocytes (%) (Auto) 18, Monocytes (%) (Auto) 11, Eosinophils (%) (Auto) 5, Basophils (%) (Auto) 1, Neutrophils # (Auto) 5.1, Lymphocytes # (Auto) 1.5, Monocytes # (Auto) 0.9, Eosinophils # (Auto) 0.4H, Basophils # (Auto) 0.0, Immature Granulocyte # (Auto) 0.0, Sodium Level 134L, Potassium Level 4.4, Chloride Level 105, Carbon Dioxide Level 20L, Anion Gap 9, Blood Urea Nitrogen 20H, Creatinine 0.80, Estimat Glomerular Filtration Rate 101, BUN/Creatinine Ratio 25, Glucose Level 94, Calcium Level 8.1L, Corrected Calcium 8.6, Total Bilirubin 0.6, Aspartate Amino Transf (AST/SGOT) 60H, Alanine Aminotransferase (ALT/SGPT) 84H, Alkaline Phosphatase 98, Troponin I 0.033H, Total Protein 6.5, Albumin 3.4, Triglycerides Level 88, Cholesterol Level 147, LDL Cholesterol Direct 113, VLDL Cholesterol 18, HDL Cholesterol 33L A/P-Cardiology Assessment/Admission Diagnosis Covid-19 Minimal troponin elevation (flat on serial measurements) - likely minimal Type 2 FL due to supply demand imbalance due to Covid - No ECG evidence of coronary ischemia H/o meth and tobacco use Hypertension COPD Discussion and Recomendations * Advised to refrain from substance use * DAPT initiated at admission. Now d/c Plavix * Continue beta-adi to treat hypertension * Treat Covid (primary care svce) * Continue enoxaparin to reduce risk of Covid-related thromboembolism * Monitor labs TOY JOHNSON MD [facility] Feb 06, 2023 12:27
[2023-02-06] MEDS ORDERED: METO50TA7 PO (13:36)
[2023-02-06] MEDS ORDERED: ASPI-1238 PO (13:36)
[2023-02-06] MEDS ORDERED: BENZ100C18 PO (13:36)
[2023-02-06] MEDS ORDERED: LISI10TA25 PO (13:39)
--- NOTE | 2023-02-06 13:42 | Discharge Summary ---
MOHAN YEH MD, RESIDENT 02/06/23 1342: Discharge Summary Hospital Course Problems Reviewed?: Yes Problems/Diagnosis: (1) NSTEMI (non-ST elevated myocardial infarction) Status: Resolved Resolution Date/Time: 02/06/23 @ 13:36 Assessment & Plan: Noted to have ST depressions in V1 and V2 on EKG. Troponin was initially elevated however appears to be downtrending today to 0.033. Cardiology has been consulted and patient was started on metoprolol, Plavix and aspirin yesterday. CTA chest was otherwise negative. Plan: Per cardiology, likely type II IA secondary to COVID We will continue metoprolol 50 mg daily and aspirin 81 mg daily on discharge (2) COVID Status: Acute Assessment & Plan: Patient COVID-positive, initially requiring 2 needed liters nasal cannula. Is on room air this morning. Patient is out of treatment indications for Paxlovid. Srikanth: Continue supportive care with fluids and cough medications as needed (3) Elevated liver enzymes Status: Acute Assessment & Plan: Noted to have elevated AST and ALT on presentation. These appear to be downtrending this morning. They be secondary to COVID infection Plan: Recommend following up in the outpatient (4) Methamphetamine use Status: Chronic Assessment & Plan: Patient admits to recent methamphetamine use 4 days ago and does feel like he is withdrawing. Plan: Recommend monitoring withdrawal symptoms at home. If patient requires any medications for anxiety, he can follow-up with PCP (5) COPD (chronic obstructive pulmonary disease) Status: Chronic Assessment & Plan: Continue home medications Encourage smoking cessation (6) HTN (hypertension) Status: Chronic Assessment & Plan: Per patient, he was recently started on lisinopril for blood pressure management. Plan: Continue metoprolol as per above as this should help with patient's blood pressure (7) Hyponatremia Status: Acute Assessment & Plan: Patient noted to have hyponatremia of 132 on admission improving to 134. Likely secondary to dehydration. Plan: Follow-up in the outpatient Hospital Course Date of Admission: Feb 05, 2023 at 19:21 Admission Diagnosis : Family Physician/Provider: [place] Date of Discharge: 02/06/23 Discharge Diagnosis: COVID, type II IA Hospital Course: Patient is a 63-year-old male with a past medical history of COPD, hypertension, methamphetamine use, cannabis use who presented to the ED with chest pain. He initially began having symptoms of shortness of breath which started last week at which point he had presented to the [facility] where COVID and flu testing were negative. However he continued to experience symptoms of shortness of breath and cough productive of yellowish sputum which progressed into chest tightness that started yesterday and was persistent across his chest bilaterally. He then presented to the ED for further evaluation where he was found to be positive for COVID. He was also noted to have ST depressions in the V1 and V2 as well as an elevated troponin concerning for NSTEMI. He was thus ad mitted for further management. Cardiology was consulted who noted that troponins were improving and thus this was likely a type II IA secondary to COVID. Patient was otherwise stable from a respiratory standpoint and stable for discharge home. We discussed that he may continue to have some COVID- related symptoms and should continue supportive care at home. We will send in prescriptions for metoprolol 50 mg daily and aspirin 81 mg daily that was started in the hospital. We will also send in a prescription for Tessalon Perles for patient's cough. Labs and Pending Lab Test: Laboratory Tests 02/05/23 16:00: White Blood Count 8.5, Red Blood Count 6.12H, Hemoglobin 18.9H, Hematocrit 55H, Mean Corpuscular Volume 89, Mean Corpuscular Hemoglobin 31, Mean Corpuscular Hemoglobin Concent 35, Red Cell Distribution Width 12.8, Platelet Count 262, Mean Platelet Volume 9.6, Immature Granulocyte % (Auto) 1, Neutrophils (%) (Auto) 65, Lymphocytes (%) (Auto) 18, Monocytes (%) (Auto) 13H, Eosinophils (%) (Auto) 3, Basophils (%) (Auto) 1, Neutrophils # (Auto) 5.5, Lymphocytes # (Auto) 1.6, Monocytes # (Auto) 1.1H, Eosinophils # (Auto) 0.2, Basophils # (Auto) 0.1, Immature Granulocyte # (Auto) 0.1, Prothrombin Time 13.0, INR Comment 1.0, Activated Partial Thromboplast Time 30, D-Dimer 1.36H, Sodium Level 132L, Potassium Level 4.5, Chloride Level 99, Carbon Dioxide Level 20L, Anion Gap 13, Blood Urea Nitrogen 26H, Creatinine 1.10, Estimat Glomerular Filtration Rate 76, BUN/Creatinine Ratio 24, Glucose Level 145H, Lactic Acid Level 1.63, Calcium Level 9.0, Corrected Calcium 9.1, Magnesium Level 2.2, Total Bilirubin 0.1, Aspartate Amino Transf (AST/SGOT) 67H, Alanine Aminotransferase (ALT/SGPT) 104H, Alkaline Phosphatase 118, Troponin I 0.037H, B-Type Natriuretic Peptide 18.2, Total Protein 7.7, Albumin 3.9, Influenza Type A (RT-PCR) Not Detected, Influe nza Type B (RT-PCR) Not Detected, SARS-CoV-2 RNA (RT-PCR) DetectedH 02/06/23 04:14: White Blood Count 8.0, Red Blood Count 5.38, Hemoglobin 16.5, Hematocrit 49, Mean Corpuscular Volume 90, Mean Corpuscular Hemoglobin 31, Mean Corpuscular Hemoglobin Concent 34, Red Cell Distribution Width 13.0, Platelet Count 185, Mean Platelet Volume 9.5, Immature Granulocyte % (Auto) 1, Neutrophils (%) (Auto) 64, Lymphocytes (%) (Auto) 18, Monocytes (%) (Auto) 11, Eosinophils (%) (Auto) 5, Basophils (%) (Auto) 1, Neutrophils # (Auto) 5.1, Lymphocytes # (Auto) 1.5, Monocytes # (Auto) 0.9, Eosinophils # (Auto) 0.4H, Basophils # (Auto) 0.0, Immature Granulocyte # (Auto) 0.0, Sodium Level 134L, Potassium Level 4.4, Chloride Level 105, Carbon Dioxide Level 20L, Anion Gap 9, Blood Urea Nitrogen 20H, Creatinine 0.80, Estimat Glomerular Filtration Rate 101, BUN/Creatinine Ratio 25, Glucose Level 94, Calcium Level 8.1L, Corrected Calcium 8.6, Total Bilirubin 0.6, Aspartate Amino Transf (AST/SGOT) 60H, Alanine Aminotransferase (ALT/SGPT) 84H, Alkaline Phosphatase 98, Troponin I 0.033H, Total Protein 6.5, Albumin 3.4, Triglycerides Level 88, Cholesterol Level 147, LDL Cholesterol Direct 113, VLDL Cholesterol 18, HDL Cholesterol 33L Home Meds Active Tessalon Perles (Benzonatate) 100 Mg Capsule 100 Mg PO TID PRN 7 Days Aspirin EC (Aspirin) 81 Mg Tablet.dr 81 Mg PO DAILY 30 Days Metoprolol Succinate 50 Mg Tab.er.24h 50 Mg PO DAILY 30 Days Cyclobenzaprine HCl 10 Mg Tablet 10 Mg PO TID Naproxen 500 Mg Tablet 500 Mg PO Q12H 10 Days Omeprazole 40 Mg Capsule.dr 40 Mg PO DAILY Reported Symbicort 80-4.5 Mcg Inhaler (Budesonide/Formoterol Fumarate) 80 Mcg-4.5 Mcg/ Actuation Hfa.aer.ad 2 Puff IH BID Tylenol Extra Strength (Acetaminophen) 500 Mg Tablet 1,000 Mg PO Q8H PRN TAKES 2 (500MG) TABS Albuterol Sulfate 2.5 Mg/3 Ml (0.083 %) Vial.neb 2.5 Mg INH Q6H PRN Proventil Hfa (Albuterol Sulfate) 6.7 Gm Hfa.aer.ad 2 Puff INH Q6H PRN Assessment/Pt DC Instructions Please see electronic discharge instructions given to patient. Discharge Diet: No Restrictions Activity as Tolerated: Yes Consulations Consultations Cardiology Discharge Physical Examination Allergies: Coded Allergies: No Known Drug Allergies (Unverified , 02/12/12) General Appearance: No Apparent Distress HEENT: Normal ENT Inspection Respiratory: Chest Non Tender, Lungs Clear, Normal Breath Sounds, No Accessory Muscle Use, No Respiratory Distress Cardiovascular: Regular Rate, Rhythm, No Edema, No Murmur Gastrointestinal: Normal Bowel Sounds, Non Tender, Soft Extremity: No Pedal Edema Skin: Normal Color, Warm/Dry Neurologic/Psychiatric: Alert, Oriented x3 KAMI FLORES MD 02/06/23 1425: Discharge Summary Discharge Physical Examination Allergies: Coded Allergies: No Known Drug Allergies (Unverified , 02/12/12) Supervisory-Addendum Brief Supervisory Addendum I personally performed the bui portions of the visit, discussed case with resident and concur with resident documentation of history, physical exam, assessment and treatment plan unless otherwise noted. MOHAN YEH MD, RESIDENT Feb 06, 2023 13:42 KAMI FLORES MD Feb 06, 2023 14:25
[2023-02-06] MEDS ORDERED: MELATONIN 10 MG TABLET PO SCH (21:00)
== END 2023-02-06 14:31 | disposition home or self-care (01) | DRG 177 ==
LOC: EDUNIT# 15:45 → ER 15:48 → CSD 19:21
PROVIDERS: ADMIT Internal Medicine; ATTEND Family Medicine
PROC: 8E0ZXY6 Isolation (ICD-10-PCS; principal; 2023-02-06)
DX: U07.1 COVID-19 (principal); I21.A1 Myocardial infarction type 2; E87.1 Hypo-osmolality and hyponatremia; I10 Essential (primary) hypertension; J44.9 Chronic obstructive pulmonary disease, unspecified; F15.90 Other stimulant use, unspecified, uncomplicated; Z79.82 Long term (current) use of aspirin; Z79.899 Other long term (current) drug therapy; Z87.891 Personal history of nicotine dependence
CPT/HCPCS: 36415; 71045; 71275; 80053; 80061; 83605; 83735; 83880; 84484; 85025; 85379; 85610; 85730; 87040; 87636; 93005; 94640; 96360